=== PATIENT | male | born 1975 | race Caucasian/White ===

== ENCOUNTER → 2017-08-14 16:01 | Outpatient (CLI) | payer OTHER, SELFPAY ==
--- NOTE | 2017-08-14 16:10 | RAD_ITS ---
STUDY: X-RAY CHEST REASON FOR EXAM: Male, 42 years old. Persistent cough TECHNIQUE: PA and lateral views of the chest. COMPARISON: None. FINDINGS: Mild hyperinflation. The lungs are clear. There is no demonstrated pleural abnormality. Normal size heart. Normal mediastinum and eduar. Normal visualized pulmonary arteries. Normal visualized aortic arch and descending thoracic aorta. Normal visualized thoracic spine. Normal visualized ribs, clavicles, and shoulders. There is no demonstrated abnormality of the visualized soft tissue structures of the upper abdomen. RAD/Chest PA and Lateral IMPRESSION: Mild hyperinflation. No pulmonary edema, congestive heart failure or confluent pneumonia. Electronically Signed: Debbie Salazar MD at 7:40 EDT , Service support ,
[2017-08-14 17:36] LABS: Absolute Lymphocyte Count 2.08 X10^3/ul (0.83-4.51); Absolute Neutrophil Count 3.2 X10^3/uL (2.0-7.7); Basophil# 0.03 X10^3/uL; Basophil% 0.5 % (0-1); Eosinophil# 0.25 X10^3/uL; Eosinophils% 4.3 % (0-5); Hematocrit 42.8 % (40-54); Hemoglobin 14.3 g/dl (13.0-16.5); Lymphocyte # 2.08 X10^3/ul (4.0); Lymphocyte % 35.6 % (19-41); Mean Corp Hgb Conc 33.4 g/gl (32-36); Mean Corpuscular Hgb 30.9 pg (27.0-32.0); Mean Corpuscular Volume 92.4 fL (80-94); Monocyte# 0.32 X10^3/uL; Monocyte% 5.5 % (0-10); Neutrophil # 3.16 X10^3/uL (2.7-7.7); Neutrophil % 53.9 % (47-70); Platelet Count 221 K/mm3 (150-450); RBC Distribution Width CV 12.8 % (11.6-14.6); RBC Distribution Width SD 42.9 fl (35.1-43.9); Red Blood Count 4.63 M/mm3 (4.6-6.2); White Blood Count 5.9 K/mm3 (4.4-11.0)
[2017-08-14 17:38] LABS: POSITIVE COUNT NO; POSITIVE DIFFERENTIAL NO; POSITIVE MORPHOLOGY NO
[2017-08-14 17:52] LABS: Anion Gap 8 (5-15); BUN 14 mg/dL (7-18); BUN/Creat Ratio 15.4 RATIO (10-20); Chloride 106 mmol/L (98-107); Creatinine, Serum 0.91 mg/dL (0.70-1.30); EST Glomerular Filtration Rate 98 mL/min (>60); Est Glom Filt Rate - Afr Amer 118 mL/min (>60); Glucose 90 mg/dL (74-106); Potassium 4.5 mmol/L (3.5-5.1); Sodium Level 141 mmol/L (136-145)
== END ==
LOC: MTLAB 16:03
PROVIDERS: Family Provider Family Medicine; PCP Family Medicine; Visit Provider Family Medicine
DX: R05 Cough (principal)
CPT/HCPCS: 36415; 71046; 80048; 85025

== ENCOUNTER → 2017-08-26 15:16 | Outpatient (CLI) | payer OTHER, SELFPAY ==
[2017-08-30 03:07] LABS: Alternaria alternata <0.10 kU/L (Class 0); Aspergillus fumigatus <0.10 kU/L (Class 0); Bahia Grass 0.93 kU/L (Class II); Bermuda Grass 0.76 kU/L (Class II); Bluegrass, Kentucky 1.69 kU/L (Class III); Cat Hair/Dander, Standard <0.10 kU/L (Class 0); Cedar, Mountain <0.10 kU/L (Class 0); Cladosporium herbarum <0.10 kU/L (Class 0); Cockroach, American <0.10 kU/L (Class 0); D pteronyssinus 0.11 kU/L (Class 0/I); Dog Epithelia <0.10 kU/L (Class 0); Elm, American White <0.10 kU/L (Class 0); Hazelnut Tree <0.10 kU/L (Class 0); Hickory, White <0.10 kU/L (Class 0); Johnson Grass 0.92 kU/L (Class II); Mucor racemosus <0.10 kU/L (Class 0); Mugwort <0.10 kU/L (Class 0); Mulberry, White <0.10 kU/L (Class 0); Oak, White <0.10 kU/L (Class 0); Penicillium chrysogen <0.10 kU/L (Class 0); Pigweed, Rough <0.10 kU/L (Class 0); Plantain, English <0.10 kU/L (Class 0); Ragweed, Short/Common <0.10 kU/L (Class 0); Sheep Sorrel(Dock) <0.10 kU/L (Class 0); Stemphylium herbarum <0.10 kU/L (Class 0); Sweet Gum <0.10 kU/L (Class 0); Sycamore, American <0.10 kU/L (Class 0)
[2017-08-30 14:20] LABS: Nettle <0.10 kU/L (Class 0)
== END ==
PROVIDERS: Family Provider Family Medicine; PCP Family Medicine; Visit Provider Family Medicine
DX: Z91.09 Other allergy status, other than to drugs and biological substances (principal)
CPT/HCPCS: 36415; 86003

== ENCOUNTER → 2017-11-25 15:12 | Outpatient (CLI) | payer OTHER, SELFPAY ==
--- NOTE | 2017-11-25 15:15 | RAD_ITS ---
STUDY: X-RAY - RIGHT FOOT CLINICAL: Male, 42 years old. Pain TECHNIQUE: 3 view(s) of the foot. COMPARISON: None. FINDINGS: Normal talus, calcaneus, and tarsal bones. Normal visualized subtalar, talonavicular, calcaneocuboid, tarsal and tarsometatarsal articulations. Normal metatarsi. Normal metatarsophalangeal joint of the great toe. Normal tibial and fibular sesamoid bones. Normal interphalangeal joint of the great toe. Normal phalanges of the great toe. Normal second through fifth metatarsophalangeal joints. Normal interphalangeal joints and phalanges of the lesser toes. The soft tissue structures are unremarkable. RAD/Foot min 3 Views IMPRESSION: Normal x-ray examination of the foot. No fracture. No osteoarthritis Electronically Signed: Aaron Chua MD at 4:14 EDT Tel , Service support ,
== END ==
LOC: MTRAD 15:14
PROVIDERS: Family Provider Family Medicine; PCP Family Medicine; Referring Provider Family Medicine; Visit Provider Family Medicine
DX: M79.673 Pain in unspecified foot (principal)
CPT/HCPCS: 73630

== ENCOUNTER → 2019-01-21 07:05 | Outpatient (CLI) | payer OTHER, SELFPAY ==
[2019-01-21 07:23] LABS: Anion Gap 6 (5-15); BUN 10 mg/dL (7-18); Calcium,Total 8.8 mg/dL (8.5-10.1); Chloride 107 mmol/L (98-107); Cholesterol 194 mg/dL (200); Creatinine, Serum 0.91 mg/dL (0.70-1.30); EST Glomerular Filtration Rate 97 mL/min (>60); Est Glom Filt Rate - Afr Amer 118 mL/min (>60); Glucose 86 mg/dL (74-106); High Density Lipoprotein 36 mg/dL; Potassium 4.4 mmol/L (3.5-5.1); Sodium Level 139 mmol/L (136-145); Triglycerides 167 mg/dL; Very Low Density Lipoprotein 33 mg/dL (5-40)
[2019-01-21 09:49] LABS: Vitamin D,25 Hydroxy 23.8 ng/mL (29.95-100.01)
== END ==
PROVIDERS: Family Provider Family Medicine; PCP Family Medicine; Referring Provider Family Medicine; Visit Provider Family Medicine
DX: Z00.00 Encounter for general adult medical examination without abnormal findings (principal)
CPT/HCPCS: 80048; 80061; 82306

== ENCOUNTER 2019-03-30 06:05 | Emergency (ER) | payer OTHER, SELFPAY ==
[2019-03-30 06:06] VITALS: BP 153/98; PULSE 81; RESP 16; TEMP 36.6; O2SAT 98; BMI 32.8
--- NOTE | 2019-03-30 06:45 | ED.DCSUM_ITS ---
- ER Visit Summary Date of Service: 03/30/19 Chief Complaint: Back pain History of Present Illness: The patient is a 43 M who presents with back pain that is been getting worse over the past 3 days. Patient denies any injury. Patient states the pain is gradually gotten worse. Patient describes the pain i s sharp. Patient states pain is over the left lower lumbar area. Patient states he does have some radiation down his left leg. Patient denies any bowel or bladder changes. Patient denies any saddle anesthesia. Patient states nothing makes the pain better or worse. Physical Examination: Vital signs are stable. Patient is afebrile. Patient is in no acute distress. Musculoskeletal exam reveals tenderness over the left lumbar paraspinal muscles and sciatic notch. There is no midline tenderness. There is no bony crepitance or step-off. Range of motion was limited in all motion secondary to pain. Straight leg raises were negative bilaterally. Strength is 5/5 bilaterally in the lower extremities. There are no sensory deficits noted. Deep tendon reflexes are 2/4 bilaterally. Posterior tibial pulses are equal bilaterally. Emergency Department Course and Treatment: Patient was given an injection of Toradol here. Patient was given prescriptions for Naprosyn and Flexeril. Patient was instructed to follow-up with his primary care physician in 5 to 7 days. Patient was instructed to continue using ice to the area. Patient understands and was agreeable with the plan. All questions were answered. Disposition: Discharge home Impression: Acute low back pain with sciatica This note was generated with [employer] dictation software. It may contain incorrect words, spelling, and punctuation that were not noted in review of the chart prior to signing ED Disposition - Plan for ED Patient: Disposition: Home or Assisted Living Diagnosis: Acute low back pain with sciatica Instructions: BACK PAIN w/ SCIATICA Prescriptions: cycloBENZAPRine HCl [Flexeril] 10 mg PO QHS PRN PRN #20 tab PRN Reason: Muscle Spasm Prescription Printed Naproxen [Naprosyn] 500 mg PO BID PRN #20 tab Prescription Printed Referrals: Noah Julian MD [Primary Care Provider] - 5-7 Days
[2019-03-30] MEDS: Ketorolac 60 MG/2 ML Vial IM (06:55)
[2019-03-30 07:07] VITALS: RESP 16
== END 2019-03-30 07:07 | disposition home or self-care (01) ==
PROVIDERS: Emergency Provider Emergency Medicine; PCP Family Medicine
DX: M54.40 Lumbago with sciatica, unspecified side (principal); F17.210 Nicotine dependence, cigarettes, uncomplicated
CPT/HCPCS: 96372; 99282

== ENCOUNTER → 2019-04-09 16:38 | Outpatient (CLI) | payer OTHER, SELFPAY ==
[2019-03-30 06:06] VITALS: BMI 32.8
--- NOTE | 2019-04-09 16:42 | RAD_ITS ---
STUDY: X-RAY - LUMBAR SPINE REASON FOR EXAM: Male, 43 years old. BACK PAIN, NO KNOWN INJURY, PT WOKE UP THAT WAY TECHNIQUE: 5 view(s) of the lumbar spine were obtained. COMPARISON: None FINDINGS: Normal lumbar lordosis. There is no substantial scoliosis. There is a normal alignment of the vertebrae. Normal vertebral bodies and endplates. Normal disc space heights. The soft tissue structures are unremarkable. There are expected degenerative changes. RAD/L/S Spine Min 4 Views IMPRESSION: Unremarkable age-appropriate lumbar spine. Electronically Signed: Ericka Farmer, at 18:09 EST Tel , Service support ,
== END ==
LOC: MTRAD 16:40
PROVIDERS: PCP Family Medicine; Referring Provider Family Medicine; Visit Provider Family Medicine
DX: M54.9 Dorsalgia, unspecified (principal)
CPT/HCPCS: 72110

== ENCOUNTER → 2020-01-25 08:39 | Outpatient (CLI) | payer OTHER, SELFPAY ==
[2020-01-25 09:11] LABS: Anion Gap 4 (5-15); BUN 11 mg/dL (7-18); BUN/Creat Ratio 11.2 RATIO (10-20); Chloride 107 mmol/L (98-107); Cholesterol 191 mg/dL (200); Creatinine, Serum 0.98 mg/dL (0.70-1.30); EST Glomerular Filtration Rate 88 mL/min (>60); Est Glom Filt Rate - Afr Amer 107 mL/min (>60); Glucose 84 mg/dL (74-106); High Density Lipoprotein 41 mg/dL; Potassium 4.8 mmol/L (3.5-5.1); Sodium Level 139 mmol/L (136-145); Triglycerides 159 mg/dL; Very Low Density Lipoprotein 32 mg/dL (5-40)
== END ==
PROVIDERS: PCP Family Medicine; Referring Provider Family Medicine; Visit Provider Family Medicine
DX: Z00.00 Encounter for general adult medical examination without abnormal findings (principal); E55.9 Vitamin D deficiency, unspecified
CPT/HCPCS: 80048; 80061; 82306

== ENCOUNTER → 2020-06-17 12:27 | Outpatient (CLI) | payer OTHER, SELFPAY ==
--- NOTE | 2020-06-17 12:37 | RAD_ITS ---
STUDY: X-RAY - RIGHT RADIUS AND ULNA REASON FOR EXAM: Male, 45 years old. Forearm pain. TECHNIQUE: 2 view(s) of the forearm. COMPARISON: None. FINDINGS: There is no demonstrated soft tissue swelling. Normal visualized radius. Normal visualized ulna. RAD/Forearm 2 Views IMPRESSION: No abnormality of the right forearm. Electronically Signed: Kenan Grant MD at 13:13 EDT , Service support ,
== END ==
LOC: MTRAD 12:28
PROVIDERS: PCP Family Medicine; Referring Provider Family Medicine; Visit Provider Family Medicine
DX: M79.639 Pain in unspecified forearm (principal)
CPT/HCPCS: 73090

== ENCOUNTER 2020-06-19 13:16 | Emergency (ER) | payer OTHER, SELFPAY ==
[2020-06-19 13:16] VITALS: BP 162/97; PULSE 98; RESP 14; TEMP 37.1; O2SAT 96; BMI 32.8
--- NOTE | 2020-06-19 13:30 | RAD_ITS ---
STUDY: X-RAY - RIGHT HAND REASON FOR EXAM: Male, 45 years old. Injury/Pain TECHNIQUE: 3 view(s) of the hand. COMPARISON: None. FINDINGS: 3 views of the right hand demonstrate no evidence for acute fractures or dislocation. Metacarpal bones are intact. Metacarpal phalangeal joints are intact. The interphalangeal joints are intact. Small punctate hyperdensity in the region of the distal phalanx of the fourth digit noted likely a soft tissue foreign body along the volar aspect IMPRESSION: No evidence for acute fractures. Small punctate hyperdensity along the floor soft tissues of the fourth digit distal phalanx likely a foreign body Electronically Signed: Reid Cohen MD at 14:02 EDT Tel , Service support , RAD/Hand Min 3 Views
--- NOTE | 2020-06-19 13:31 | EX.ED.UPPERE ---
HPI History of Present Illness Chief Complaint: Upper Extremity Injury Informant: patient Occured/Mechanism Mechanism/Context: Yes other Onset/Context/Timing Onset: Weeks (1) Context: Gradual Onset Timing: Continuous Quality of Pain: Dull Worsened by: Nothing Relieved by: Nothing Associated Symptoms Associated Symptoms: Positive for Weakness and Loss of Funtion; Negative for Parasthesia Narrative Narrative: Patient presents with right hand weakness that has gradually gotten worse over the last week. Patient states that today he is unable to move his right hand. Patient states he has seen his primary care physician for this. Patient states he had forearm x-rays done this week which were negative. Patient states he has been placed on a steroid. Patient states this has not helped. Patient denies any paresthesias. Patient denies any trauma or injury. PFSH PFSH no medical history Home Medications NK 06/19/20 [History Last Taken Unknown] Allergy/AdvReac Type Severity Reaction Status Date / Time No Known Allergies Allergy Verified 06/19/20 13:19 no surgical history Social History Smoking Status: Current every day smoker ROS ROS ED Constitutional Constitutional ED: Denies chills or sweats Eyes Eyes: Denies blurry vision or change in vision ENT ENT ED: Denies rhinorrhea or sore throat Cardiovascular Cardiovascular: Denies chest pain or palpitations Respiratory/Chest Respiratory/Chest: Denies cough or dyspnea Gastrointestinal Gastrointestinal: Denies nausea or vomiting Genitourinary Genitourinary ED: Denies dysuria or hematuria Musculoskeletal Musculoskeletal: Denies back pain or neck pain Integumentary Denies abscess or rash Neurologic Neurologic: Denies headache(s) or paresthesias Allergic/Immunologic Allergic/Immunologic ED: Denies mouth swelling or urticaria EXAM Physical Exam Const Vital Signs: 06/19/20 13:16 Temperature 98.8 F Temperature Source Temporal Pulse Rate 98 Respiratory Rate 14 Blood Pressure 162/97 H Blood Pressure Mean 118 Pulse Ox 96 Oxygen Delivery Method Room Air Positive well nourished and well developed General Appearance ED: well developed HEENT normocephalic and atraumatic Extremity Right Upper Extremity: hand and digits inspection, palpation, ROM (There is decreased range of motion in all digits.), neurovascular exam (Radial pulses are equal bilaterally. Capillary refill is less than 2 seconds in all digits. Sensation was intact to light touch in all digits.) and hand special tests (Tinel's sign was negative. Phalen's test was negative.) Neuro oriented x3, CN's II-XII intact bilaterally and no sensory deficits noted Neuro Narrative: Strength is 5/5 in the right shoulder, bicep, tricep, wrist extension, and wrist flexion. Strength is 3/5 with mold yarn supervisor. Sensorium / Orientation: alert Motor Exam: strength abnormal MDM MDM MDM Narrative Medical decision making narrative: CBC and comprehensive metabolic profile were obtained and are essentially within normal limits. Sed rate and CRP were normal. X-rays of the right hand were obtained. There are 3 views. On my interpretation, there is no acute fracture. There is no soft tissue swelling. There is no dislocation. Radiologist also interpreted the x-ray and agrees. Patient was advised of his findings. Patient was instructed to continue his steroid as prescribed until gone. Patient was instructed to continue wearing his splint. Patient was instructed to follow-up with his orthopedic appointment tomorrow as scheduled. Patient was also advised that this is may be a neuropraxia and he may require EMG and nerve conduction studies as an outpatient. Patient understands and is agreeable with the plan. All questions were answered. Lab Data Attestation: I reviewed the patient's lab results. Discharge Plan Triage Chief Complaint: Upper Extremity Injury ED Provider: Jaylen Han Dx/Rx/DC Orders Clinical Impression: Weakness of right hand Instructions: ED Weakness (Uncertain Cause) Prescriptions: No Action NK RF: 0 Primary Care Provider: Noah Julian Referrals: Ulysses Rausch DO [STAFF PHYSICIAN] - Keep Andre appointment Noah Julian MD [Primary Care Provider] - 3-5 Days Disposition Disposition: Home, self care
[2020-06-19 13:49] LABS: Absolute Lymphocyte Count 3.72 X10^3/uL (0.83-4.51); Absolute Neutrophil Count 4.7 X10^3/uL (2.0-7.7); Basophil# 0.03 X10^3/uL; Basophil% 0.3 % (0-1); Eosinophil# 0.19 X10^3/uL; Eosinophils% 2.1 % (0-5); Hematocrit 42.9 % (40-54); Hemoglobin 14.5 g/dL (13.0-16.5); Lymphocyte # 3.72 X10^3/ul (0.83-4.51); Lymphocyte % 40.5 % (19-41); Mean Corp Hgb Conc 33.8 g/dL (32-36); Mean Corpuscular Hgb 31.6 pg (27.0-32.0); Mean Corpuscular Volume 93.5 fL (80-94); Mean Platelet Vol. 10.1 fl (6.2-12.0); Monocyte# 0.53 X10^3/uL; Monocyte% 5.8 % (0-10); NRBC Flagged by Analyzer 0 % (0-5); Neutrophil # 4.69 X10^3/uL (2.7-7.7); Platelet Count 248 K/mm3 (150-450); RBC Distribution Width CV 12.5 % (11.6-14.6); RBC Distribution Width SD 43.1 fl (35.1-43.9); Red Blood Count 4.59 M/mm3 (4.6-6.2); White Blood Count 9.2 K/mm3 (4.4-11.0)
[2020-06-19 13:55] LABS: Erythrocyte Sedimentation Rate 7 mm/hr (0-20)
[2020-06-19 14:14] LABS: ALB/GLOB Ratio 1.5 RATIO (0.9-2.4); AST(SGOT) 13 U/L (15-37); Alanine Aminotransfer ALT/SGPT 28 U/L (16-61); Albumin, Serum 4.1 g/dL (3.2-5.0); Alkaline Phosphatase 62 U/L (45-117); Anion Gap 4 (5-15); BUN 17 mg/dL (7-18); BUN/Creat Ratio 21.4 RATIO (10-20); CRP < 2.90 mg/L (0.0-3.0); Calcium,Total 8.7 mg/dL (8.5-10.1); Chloride 110 mmol/L (98-107); EST Glomerular Filtration Rate 112 mL/min (>60); Est Glom Filt Rate - Afr Amer 136 mL/min (>60); Estimated Creatinine Clearance 110.17 ml/min; Globulin 2.8 g/dL (2.2-4.2); Glucose 104 mg/dL (74-106); Protein, Total 6.9 g/dL (6.4-8.2); Sodium Level 141 mmol/L (136-145)
== END 2020-06-19 15:03 | disposition home or self-care (01) ==
PROVIDERS: Emergency Provider Emergency Medicine; PCP Family Medicine
DX: R53.1 Weakness (principal); F17.200 Nicotine dependence, unspecified, uncomplicated
CPT/HCPCS: 73130; 80053; 85025; 85652; 86140; 99282; A4216

== ENCOUNTER → 2020-06-21 13:09 | Outpatient (CLI) | payer OTHER, SELFPAY ==
[2020-06-20 10:14] VITALS: BMI 32.8
--- NOTE | 2020-06-21 13:11 | MRI_ITS ---
STUDY: MRI CERVICAL SPINE WITHOUT CONTRAST REASON FOR EXAM: Male, 45 years old. pain TECHNIQUE: Standardized fat and water weighted pulse sequences were obtained in the sagittal and axial planes. COMPARISON: X-ray 06/20/2020 FINDINGS: Normal foramen magnum and brainstem-cervical cord junction. Normal craniovertebral junction. Normal anterior atlantoaxial articulation. Normal odontoid process. There is straightening of the normal cervical lordosis. Normal vertebral bodies and posterior osseous elements. C2-3: Normal endplates. Normal disc height, signal and morphology. Normal central canal and intervertebral neural foramina. C3-4: Normal endplates. Normal disc height, signal and morphology. Normal central canal and intervertebral neural foramina. C4-5: Normal endplates. Normal disc height, signal and morphology. Normal central canal and intervertebral neural foramina. C5-6: Moderate sized central disc protrusion produces moderate spinal stenosis with near abutment of the central spinal cord. No neural foraminal stenosis. C6-7: Mild broad disc osteophyte complex with Modic type II endplate changes produces mild spinal stenosis, mild right neural foraminal stenosis and moderate left neural foraminal stenosis. C7-T1: Normal endplates. Normal disc height, signal and morphology. Normal central canal and intervertebral neural foramina. Normal cervical cord. Normal visualized soft tissue structures. MRI/Spine Cervical (Routine) IMPRESSION: Multilevel degenerative changes, as described above. Electronically Signed: Jake Almeida MD at 15:36 EDT Tel , Service support ,
== END ==
LOC: MRI 13:11
PROVIDERS: PCP Family Medicine; Visit Provider Orthopaedic Surgery
DX: M54.12 Radiculopathy, cervical region (principal)
CPT/HCPCS: 72141

== ENCOUNTER → 2020-06-24 13:03 | Outpatient (CLI) | payer OTHER, SELFPAY ==
[2020-06-23 11:11] VITALS: BMI 32.8
[2020-06-24 13:47] LABS: Erythrocyte Sedimentation Rate 15 mm/hr (0-20)
[2020-06-24 14:23] LABS: Thyroid Stim Hormone (TSH) 1.26 uIU/mL (0.358-3.74)
== END ==
PROVIDERS: PCP Family Medicine; Referring Provider Psychiatry & Neurology Neurology; Visit Provider Psychiatry & Neurology Neurology
DX: G56.91 Unspecified mononeuropathy of right upper limb (principal)
CPT/HCPCS: 36415; 84443; 85652

== ENCOUNTER → 2020-08-31 14:18 | Outpatient (CLI) | payer OTHER, SELFPAY ==
[2020-06-23 11:11] VITALS: BMI 32.8
--- NOTE | 2020-08-31 15:15 | NEURO ---
NCS and/or EMG Patient Report Ordering Doctor: David Malin DATE OF SERVICE: 08/31/20 Kenan presents for Electrodiagnostic testing of the right upper limb. Reports weakness and stiffness in the right hand for 3 months with intermittent numbness and tingling. Electrodiagnostic findings: Right median motor nerve demonstrates normal distal latency and amplitude with borderline reduced conduction velocity. Normal right ulnar motor response, including conduction across the elbow. Sensory responses are within normal limits. Median and ulnar F waves are normal. On needle EMG, all muscles tested in the right upper limb, as well as the right cervical paraspinals, showed no evidence of denervation with normal motor unit action potentials. Electrodiagnostic impression: This is a normal electrodiagnostic study in the right upper limb. There is no electrodiagnostic evidence for peripheral neuropathy or cervical radiculopathy.
== END ==
LOC: PSN 14:19
PROVIDERS: PCP Family Medicine; Referring Provider Psychiatry & Neurology Neurology; Visit Provider Psychiatry & Neurology Neurology
DX: R29.898 Other symptoms and signs involving the musculoskeletal system (principal); G62.9 Polyneuropathy, unspecified
CPT/HCPCS: 95886; 95910

== ENCOUNTER 2020-09-21 16:00 | Outpatient (RCR) | payer OTHER, SELFPAY ==
[2020-06-23 11:11] VITALS: BMI 32.8
--- NOTE | 2020-07-15 08:14 | HP.OTEVAL ---
Patient's Visit Information JAZZY SKINNER is a 45 year old M, referred to Occupational Therapy by Dr. David Malin MD, with a diagnosis of Polyneuropathy right UE. Date of Evaluation: 07/14/20 Occupational Therapist: Amelia De La Cruz, TOSHIA/Carlie, CHT - Subjective This 45 year old male was seen for OT eval. 5-6 weeks ago pt states he woke up and could not move his hand. pt states he went to Dr. and was placed on prednisone- went to ER. had testing done- Per pt they are unsure what is going on. pt to have nerve conduction testing done August 31, 2020. pt states he does feel a tingling/numbness in all fingers- and noticed more difficulty with the ability to use his right dominant hand. pt would like to know what he can do to get his hand back. pt states weakness is bothersome and limits his ability to pinch, right,type or grasp objects. 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 - ADLs Fasteners: Tie shoes, Buttons, Belt Eating: Use silverware, Cut food, Drink from glass Grooming: Trim nails, [place] teeth Kitchen: Chop with knife Miscellaneous: Use cell phone, Handle money (change), Hold change, Take things out of wallet, Use hand tools, Use power tools - Pain right arm forearm 2 Pain Intensity Range: 0, 3 - ROM Shoulder: right/left WNL Elbow: right/left WNL Forearm: right/left WNL Wrist: right 70/45 left 70/65 Opposition: right 0 left 10 ROM Comments: pt demo with no IP flex of right thumb with attempts at opposition- pt can perform slight IP flex ind. pt initiates composite fist with fingers flat fist and no DIP flex- pt can perform hook fist and then roll fingers down into composite fist but more difficult and challenging. - Strength Shoulder: right 4+/5 left 4/5 Elbow: right 4+/5 left 4+/5 Forearm: right 4+/5 left 4+/5 Wrist: right 4+/5 left 4+/5 Environmental Planning Engineer: right 25# left 90 Lateral Pinch: right unable left 10# Tripod Pinch: right unable left 14# Tip-to-Tip Pinch: right unable left 10# Strength Comments: pt demo with significant weakness of left business process analyst and pinch strength - Sensation Thumb: right 2.83 left 2.83 Index: right 2.83 left 2.83 Middle: right 2.83 left 2.83 Ring: right 2.83 left 2.83 Little: right 2.83 left 2.83 - In-Hand Manipulation Finger to Palm Translation: Moderate - Right, Severe - Right, Unable - Right, Normal - Left Palm to Finger Translation: Unable - Right, Normal - Left Shift: Unable - Right, Normal - Left Rotation: Unable - Right, Normal - Left - Quick DASH-Disab of Arm,Shoulder& Hand Quick DASH Score: 66.0700 - Goals Goal:: pt will demo a increase in right business process analyst strength to 75# or greater to return pt to plof by d/c. pt will demo the ability to pinch 6# with lateral and tripod pinch to increase pts ind. with ADLs and IADLs by D/c Goal:: pt will demonstrate the ability to perform right digit opposition to base of LF indicating increase in FMS to perform ADls and IADLs at IND. level by d/c Goal:: pt will demo the ability to write name legible with ad. devices at VIKAS level by d/c. pt will report less typing errors when at work. - Rehabilitation General Assessment: pt demo with significant weakness in right business process analyst and pinch strength limiting pts ind. with ADLS and IADLs. pt would benefit from skilled OT service 2x week for 6 weeks to increase pts strength to return to PLOF as well as challenge pts FMS to increase pts ind. with type,write and other occupations of daily living. Today therapy initiated nerve glides and will transition pt to PRE as he is able. pt demo. understanding and agree to POC. Rehabilitation Potential: Good - Anticipated Interventions Early Active Motion, Strengthening, Modalities, Fine Motor Coord/Jamaal, Neuro Reeducation, Education re assistive Equipment - Visit Plan Frequency: 1-2x /Week Duration: 4 Weeks TEXT: Thank you for the opportunity to evaluate your patient. For Medicare and Medicare HMO plans, please review the plan of care and approve it. It will need to be FAXED BACK to us at [phone] for Medicare purposes. Please let me know if there are questions or concerns regarding this plan of care. Physician Signature: Date:
--- NOTE | 2020-09-26 18:16 | HP.OTDCSUM ---
It has been my pleasure to treat JAZZY SKINNER under orders from Dr. David Malin MD, for the diagnosis of Polyneuropathy right UE for a total of 8 visit(s). Please see the following information for a summary of their discharge status. % Improvement: 0 Objective/Function: right traffic control technician strength 35#. right lateral pinch 4# decrease from 10#. right tripod pinch unable. tip pinch right unable. pts pinch strength and significantly decreased from initial- pt would benefit from further testing Patient Goals: Regain Mobility, Improve Fine Motor Skills, Use Hand/Wrist/Arm Normally Again, Be More Independent in ADLS Goal:: pt will demo a increase in right traffic control technician strength to 75# or greater to return pt to plof by d/c. pt will demo the ability to pinch 6# with lateral and tripod pinch to increase pts ind. with ADLs and IADLs by D/c Goal:: pt will demonstrate the ability to perform right digit opposition to base of LF indicating increase in FMS to perform ADls and IADLs at IND. level by d/c Goal:: pt will demo the ability to write name legible with ad. devices at VIKAS level by d/c. pt will report less typing errors when at work. Plan: return to family due to increase weakness and per pt NCS in normal Discharge Comments: pt would benefit from further testing as his strength has continued to decrease in right traffic control technician/pinch. Therapist rec'd pt to go to family and pursue further testing or imagine of brain as nerve conduction test was normal. possible lynnette involvement. pt d/c at this time. If there are questions or concerns regarding this patient's occupational therapy, please fell free to call me at [phone]. Thank you for the referral of this patient. Sincerely, Amelia De La Cruz, OTR/L, CHT
== END 2020-09-21 19:00 | disposition home or self-care (01) ==
LOC: OT 16:00
PROVIDERS: PCP Family Medicine; Referring Provider Psychiatry & Neurology Neurology; Visit Provider Psychiatry & Neurology Neurology
DX: G62.9 Polyneuropathy, unspecified (principal); R29.898 Other symptoms and signs involving the musculoskeletal system
CPT/HCPCS: 97110; 97140; 97166; 97530

== ENCOUNTER 2020-09-25 16:34 | Emergency (ER) | payer OTHER, SELFPAY ==
[2020-06-23 11:11] VITALS: BMI 32.8
[2020-09-25] VITALS (8 sets, daily range): BP systolic 161–178; BP diastolic 85–104; PULSE 81–89; RESP 14–24; TEMP 37–37.2; O2SAT 95–97; BMI 32.4
--- NOTE | 2020-09-25 16:37 | NURSING ---
NO OLD EKGS
--- NOTE | 2020-09-25 16:38 | CT_ITS ---
STUDY: CTA HEAD AND NECK WITH CONTRAST REASON FOR EXAM: Male, 45 years old. Neuro deficit, acute, stroke suspected RADIATION DOSAGE (If Supplied By Facility): CTDIvol = ( 19.35 ) mGy, DLP = ( 615.19 ) mGycm TECHNIQUE: CT angiography was performed with a multi-detector CT scanner. Data acquisition was obtained from the skull base through the vertex following intravenous administration of IV 100mL Isovue-370. MIP images were reconstructed from the axial data set. Post-processing of the angiographic images was performed, with multiplanar reformation and 3D reconstruction. Individualized dose optimization techniques were used for this CT. COMPARISON: No relevant priors. FINDINGS: Normal bilateral petrous carotid arteries. There is calcified plaque formation of the right cavernous carotid artery, without a cross-sectional luminal stenosis. There is calcified plaque formation of the left cavernous carotid artery, without a cross-sectional luminal stenosis. Normal right A1 segments of the anterior cerebral artery. Normal left A1 segments of the anterior cerebral artery. Normal intact anterior communicating artery (ACOM). Normal bilateral A2 segments of the anterior cerebral arteries. Normal right M1 and M2 segments of the middle cerebral arteries, with a normal M1 bifurcation. There is retrograde filling of the left middle cerebral artery from the right side. There is decreased vascular branches of the distal left middle cerebral artery in the region of the sylvian fissure. Normal right posterior communicating artery (PCOM). Normal left posterior communicating artery (PCOM). Normal bilateral vertebral arteries. Normal basilar artery with a normal basilar bifurcation. The visualized bilateral superior cerebellar (SCA) arteries are normal. Normal bilateral P1, P2 and visualized P3 segments of the posterior cerebral arteries. There is no demonstrated aneurysm of the rosebud of [place]. There is no demonstrated abnormality of the visualized brain. AORTIC ARCH: Normal visualized aortic arch. Normal origins of the brachiocephalic, left common carotid, and left subclavian arteries. RIGHT CAROTID ARTERIES: Normal right common carotid artery (CCA). Normal right common carotid bulb. Normal origin of the right internal carotid (ICA) artery without a hemodynamically significant stenosis. Normal visualized cervical portion of the right internal carotid artery. Normal origin of the right external carotid artery (ECA). LEFT CAROTID ARTERIES: Normal left common carotid artery (CCA). Normal left common carotid bulb. There is occlusion of the left internal carotid artery at its origin. Normal visualized cervical portion of the left internal carotid artery. Normal origin of the left external carotid artery (ECA). VERTEBRAL ARTERIES: Normal bilateral vertebral arteries. CT/STROKE CTA Head AND Neck W/Con IMPRESSION: There is occlusion of the left internal carotid artery at its origin with retrograde filling of the intracranial branches of the left internal carotid artery from the right internal carotid artery. N.B. : The above Results were Read Back by Garfield Alvarez MD to Dr Sara MD, and understanding confirmed on 09/26/2020 14:34:28 (ET). Electronically Signed: Garfield Alvarez MD at 14:35 EDT , Service support ,
--- NOTE | 2020-09-25 16:38 | CT_ITS ---
STUDY: CT BRAIN WITHOUT CONTRAST REASON FOR EXAM: Male, 45 years old. Neurologic deficit, stroke evaluation RADIATION DOSAGE (If Supplied By Facility): CTDIvol = ( ) mGy, DLP = ( ) mGycm TECHNIQUE: Transaxial CT imaging of the brain was performed without administration of intravenous contrast material. Individualized dose optimization techniques were used for this CT. COMPARISON: No relevant priors. FINDINGS: There is a wedge-shaped left frontal lobe anterolateral encephalomalacia and adjacent linear subcortical centrum semiovale white matter ill-defined hypodensity. There is no acute intracranial hemorrhage, extra parenchymal fluid collections, hydrocephalus or herniation. Extra parenchymal fluid spaces are diminished. The skull is intact. CT/STROKE Brain/Head without Cont IMPRESSION: 1. Left frontal lobe infarct, probably chronic/versus subacute. 2. Adjacent white matter ischemia, unknown age. 3. In the presence of acute neurologic deficit MRI is recommended. Infarct extension or acute white matter infarct is in the differential diagnosis. N.B. : The above Results were Read Back by Ericka Farmer MD to Sara Lozano MD, and understanding confirmed on 09/25/2020 16:55:18 (ET). Electronically Signed: Ericka Farmer MD at 16:56 EDT Tel , Service support ,
--- NOTE | 2020-09-25 16:38 | EKG12_ITS ---
Test Reason : STROKE Blood Pressure : / mmHG Vent. Rate : 087 BPM Atrial Rate : 087 BPM P-R Int : 160 ms QRS Dur : 076 ms QT Int : 336 ms P-R-T Axes : 056 036 056 degrees QTc Int : 404 ms Normal sinus rhythm Normal ECG Confirmed by XIMENA GLEZ, YARELY ([id number]), editor house organ ISRA[place] PASTOR ([id number]) on 09/28/2020 9:49:14 AM Referred By: CHARISSE Confirmed By:YARELY BUENO MD
--- NOTE | 2020-09-25 16:41 | ED.VIS.STROK ---
HPI History of Present Illness Chief Complaint: Neuro S/Sx Informant: spouse/S.O. Narrative Narrative: Patient is a 45-year-old male with history of migraines and neuropathy/weakness of his right lower extremity for the past few months presenting with sudden onset of right-sided facial droop and inability to speak. History is obtained from his . She states they had lunch around 240 and then shortly afterwards he fell asleep and took a nap. That was around 3:15. Patient then rolled off the couch and seemed confused. This happened around 4 PM. notes that he seemed to have a right-sided facial droop and was not able to speak. He started crying. She called 911 and he was brought to the emergency room. states nothing this never happened before. He has been complained of a headache intermittently all day but that was not abnormal for him as he does have a history of migraines. No other complaints at this time. Patient is unable to provide any further history. PFSH PFSH Home Medications cholecalciferol (vitamin D3) 1,250 mcg (50,000 unit) capsule 1,250 mcg PO QWEEK #4 cap 08/01/20 [Rx Last Taken Unknown] Allergy/AdvReac Type Severity Reaction Status Date / Time No Known Allergies Allergy Verified 08/01/20 15:36 Social History Smoking Status: Current every day smoker tobacco type: cigarettes Electronic Cigarette Use: not used second hand exposure: Yes alcohol intake: never substance use type: does not use ROS ROS ED Review of Systems ROS Unobtainable: other Details: due to aphasia Neurologic Neurologic: Reports headache(s) and weakness EXAM Physical Exam Const Vital Signs: 09/25/20 16:34 09/25/20 16:38 09/25/20 16:41 Temperature 99 F Temperature Source Temporal Pulse Rate 88 89 86 Respiratory Rate 22 H 24 H 18 Blood Pressure 161/104 H 163/88 H 161/104 H Blood Pressure Mean 123 113 123 Pulse Ox 97 96 95 Oxygen Delivery Method Room Air Room Air Room Air 09/25/20 16:53 09/25/20 17:08 Temperature 99 F Temperature Source Temporal Pulse Rate 87 88 Respiratory Rate 16 22 H Blood Pressure 161/104 H 161/85 H Blood Pressure Mean 123 110 Pulse Ox 97 95 Oxygen Delivery Method Room Air Room Air Positive well nourished and well developed General Appearance ED: well developed HEENT Reports dry mucous membranes atraumatic Mouth ED: Yes dry mucous membranes Mouth: dry mucous membranes Eyes PERRL and EOMs intact bilaterally Neck supple and no JVD Chest Wall inspection of chest normal Resp normal respiratory effort and clear to auscultation bilaterally Cardio no murmurs Rate: regular rate Rhythm: regular rhythm GI normal to inspection, nondistended, normoactive bowel sounds Extremity normal to inspection General Extremety ED: Negative for deformity or edema General Extremity: Negative for deformity or edema Neuro No CN's II-XII intact bilaterally Neuro Narrative: See NIH below. Patient has a right facial droop. He is severely dysarthric is not able to make any intelligible sounds. Has a difficult time following commands. Appears to have complete weakness of the right side and loss of sensation. Given his dysarthria and difficulty following commands neurologic exam is difficult. Sensorium / Orientation: alert and confused Speech: Negative for speech normal Sensory Exam: sensory level loss detected Motor Exam: strength abnormal Psych Mood & Affect: tearful Skin no wounds Lesions: no lesions Rashes: no rashes STROKE Vital Signs/Narrative: Vital Signs Temp Pulse Resp BP Pulse Ox 09/25/20 17:08 88 22 H 161/85 H 95 09/25/20 16:53 99 F 87 16 161/104 H 97 09/25/20 16:41 99 F 86 18 161/104 H 95 09/25/20 16:38 89 24 H 163/88 H 96 09/25/20 16:34 88 22 H 161/104 H 97 NIHSS Initial: 1a Level of Consciousness: 0 1b LOC Questions (Score 2 if aphasic/stupor): 2 1c LOC Commands (Only score 1st attempt): 1 2 Best Gaze (If aphasic, use reflexive mvmts.): 0 3 Visual: 0 4 Facial Palsy: 2 5 Motor Arm Right (UN = amputation/fusion): 3 5 Motor Arm Left: 0 6 Motor Leg Right: 3 6 Motor Leg Left: 0 7 Limb ataxia (Only + if out of proportion): 0 8 Sensory (Aphasia/stupor=0 or 1, coma=2): 1 9 Best Language: 3 10 Dysarthria (mute, coma=2, intubated=UN): 2 11 Extinction and Inattention (only scored if +): 0 Total Score: 17 MDM MDM MDM Narrative Medical decision making narrative: Patient evaluated for acute onset of stroke symptoms. Last known well is 415. Patient does appear to have significant neurologic deficits his NIH is 17. CT of the brain shows left frontal lobe infarct probably chronic versus subacute. Patient has been having months of right hand weakness but no other acute neurologic symptoms. Given his young age and significant disability we did discuss the risk benefits of TPA with the patient's and with the patient in the room. The patient is unable to have an input however given his dysarthria and inability to communicate. Will proceed with TPA. Patient does not have any absolute contraindications. Patient is evaluated by stroke neurology and will be transferred via [facility]. Patient's is agreeable this plan of care. Patient remains hemodynamically stable in the emergency room. Lab Data Labs: Laboratory Results - last 24 hr 09/25/20 09/25/20 16:25 16:25 WBC 6.2 RBC 4.96 Hgb 15.5 Hct 45.5 MCV 91.7 MCH 31.3 MCHC 34.1 RDW Std Deviation 41.2 RDW Coeff of Scott 12.3 Plt Count 263 MPV 10.7 Immature Gran % (Auto) 0.200 Neut % (Auto) 43.4 L Lymph % (Auto) 42.8 H Freestone % (Auto) 7.4 Eos % (Auto) 5.4 H Baso % (Auto) 0.8 Absolute Neuts (auto) 2.7 Absolute Lymphs (auto) 2.67 Nucleated RBC % 0 Sodium 139 Potassium 4.0 Chloride 106 Carbon Dioxide 29.0 Anion Gap 4 L BUN 8 Creatinine 0.97 Estim Creat Clear Calc 90.86 Est GFR (MDRD) Af Amer 109 Est GFR (MDRD) Non-Af 90 BUN/Creatinine Ratio 8.3 L Glucose 96 Calcium 9.2 Troponin I High Sens 5.9 Radiography Diagnostic Testing: Radiology Impression Brain CT 09/25/20 16:38 IMPRESSION: 1. Left frontal lobe infarct, probably chronic/versus subacute. 2. Adjacent white matter ischemia, unknown age. 3. In the presence of acute neurologic deficit MRI is recommended. Infarct extension or acute white matter infarct is in the differential diagnosis. N.B. : The above Results were Read Back by Ericka Farmer MD to Sara Lozano MD, and understanding confirmed on 09/25/2020 16:55:18 (ET). Electronically Signed: Ericka Farmer MD at 16:56 EDT Tel , Service support , ADDENDUM: 09/25/20 1703 IMPRESSION: 1. Left frontal lobe infarct, probably chronic/versus subacute. 2. Adjacent white matter ischemia, unknown age. 3. In the presence of acute neurologic deficit MRI is recommended. Infarct extension or acute white matter infarct is in the differential diagnosis. N.B. : The above Results were Read Back by Ericka Farmer MD to Sara Lozano MD, and understanding confirmed on 09/25/2020 16:55:18 (ET). Electronically Signed: Ericka Farmer MD at 16:56 EDT Tel , Service support , Rhythm Strip Rhythm Strip: Sinus Rhythm Rate: 87 Ectopy: None EKG Initial EKG: Attestation: I personally reviewed and interpreted this EKG as follows: Interpretation: Sinus Rhythm Comments: Normal sinus rhythm rate of 87 Normal axis Normal intervals Normal ST segments Stroke Documentation Questions Stroke Team Activated: Yes Reviewed Inclusion/Exclusion criteria: Yes Was Patient considered for Endovascular Intervention?: No IV Alteplase (t-PA) Administered: Yes No contraindications for IV Alteplase (t-PA) administration.: Yes Alteplase (t-PA) risks, benefits, alternative discussed: Yes Not given: Patient refusal: No Critical Care Time Critical Care Time: Yes Critical care time (excluding procedures): 30-74 minutes, Discussing w/Patient &/or Family/Tree Faller, Discussing w/Consultants and Arranging Admission or Transfer Discharge Plan Triage Chief Complaint: Neuro S/Sx ED Provider: Marta Ruiz Dx/Rx/DC Orders Clinical Impression: Acute stroke due to ischemia, Expressive aphasia, Acute right-sided weakness Prescriptions: No Action cholecalciferol (vitamin D3) 1,250 mcg (50,000 unit) capsule 1,250 mcg PO QWEEK Qty: 4 RF: 1 Primary Care Provider: Noah Julian Referrals: Noah Julian MD [Primary Care Provider] - Disposition Disposition: Acute Care Hospital Discharge Location: [facility]
[2020-09-25 16:49] LABS: Absolute Lymphocyte Count 2.67 X10^3/uL (0.83-4.51); Absolute Neutrophil Count 2.7 X10^3/uL (2.0-7.7); Basophil# 0.05 X10^3/uL; Basophil% 0.8 % (0-1); Eosinophil# 0.34 X10^3/uL; Eosinophils% 5.4 % (0-5); Hematocrit 45.5 % (40-54); Hemoglobin 15.5 g/dL (13.0-16.5); Lymphocyte # 2.67 X10^3/ul (0.83-4.51); Lymphocyte % 42.8 % (19-41); Mean Corp Hgb Conc 34.1 g/dL (32-36); Mean Corpuscular Hgb 31.3 pg (27.0-32.0); Mean Corpuscular Volume 91.7 fL (80-94); Mean Platelet Vol. 10.7 fl (6.2-12.0); Monocyte# 0.46 X10^3/uL; Monocyte% 7.4 % (0-10); NRBC Flagged by Analyzer 0 % (0-5); Neutrophil # 2.71 X10^3/uL (2.7-7.7); Neutrophil % 43.4 % (47-70); Platelet Count 263 K/mm3 (150-450); RBC Distribution Width CV 12.3 % (11.6-14.6); RBC Distribution Width SD 41.2 fl (35.1-43.9); Red Blood Count 4.96 M/mm3 (4.6-6.2); White Blood Count 6.2 K/mm3 (4.4-11.0)
--- NOTE | 2020-09-25 16:50 | NURSING ---
FACESHEET FAXED TO [facility]
[2020-09-25 17:10] LABS: Anion Gap 4 (5-15); BUN 8 mg/dL (7-18); BUN/Creat Ratio 8.3 RATIO (10-20); Calcium,Total 9.2 mg/dL (8.5-10.1); Chloride 106 mmol/L (98-107); Creatinine, Serum 0.97 mg/dL (0.70-1.30); EST Glomerular Filtration Rate 90 mL/min (>60); Est Glom Filt Rate - Afr Amer 109 mL/min (>60); Estimated Creatinine Clearance 90.86 ml/min; Glucose 96 mg/dL (74-106); Sodium Level 139 mmol/L (136-145); Troponin-I HS 5.9 pg/mL (3.0-78.5)
--- NOTE | 2020-09-25 17:10 | RAD_ITS ---
STUDY: X-RAY CHEST REASON FOR EXAM: Male, 45 years old. Neuro deficit, acute, stroke suspected TECHNIQUE: Frontal view COMPARISON: 08/14/2014 FINDINGS: The lungs are clear and expanded. There is no demonstrated pleural abnormality. Normal size heart. Normal mediastinum and eduar. Normal visualized pulmonary arteries. Normal visualized aortic arch and descending thoracic aorta. Normal visualized thoracic spine. Normal visualized ribs, clavicles, and shoulders. There is no demonstrated abnormality of the visualized soft tissue structures of the upper abdomen. RAD/Chest 1 View IMPRESSION: Normal x-ray examination of the chest. Electronically Signed: Rajendra Chavira DO at 18:08 EDT Tel [phone], Service support ,
--- NOTE | 2020-09-25 17:20 | NURSING ---
1712 CALLED [facility], ETA IS 10 MIN
--- NOTE | 2020-09-25 17:35 | ED.RN ---
[facility] at bedside
[2020-09-25 18:48] LABS: Prothrombin Time (Protime)PT. 12.6 SECONDS (11.7-14.9)
[2020-09-25 18:49] LABS: Partial Thromboplast Time 39.1 Seconds (24.1-36.2)
== END 2020-09-25 17:44 | disposition short-term general hospital (02) ==
PROVIDERS: Emergency Provider Emergency Medicine; PCP Family Medicine
DX: I63.9 Cerebral infarction, unspecified (principal); R47.01 Aphasia; G81.91 Hemiplegia, unspecified affecting right dominant side; I67.82 Cerebral ischemia; F17.210 Nicotine dependence, cigarettes, uncomplicated; R29.810 Facial weakness
CPT/HCPCS: 70450; 70496; 70498; 71045; 80048; 84484; 85025; 85610; 85730; 87426; 93005; 99285; J2997; Q9967; A4216

== ENCOUNTER 2021-01-13 21:25 | Emergency (ER) | payer SELFPAY ==
[2021-01-13 21:26] VITALS: BP 158/93; PULSE 84; RESP 14; TEMP 37.3; O2SAT 95; BMI 31.6
--- NOTE | 2021-01-13 21:55 | CT_ITS ---
HISTORY: Headache and confusion, swelling at craniotomy site. Stroke September 2020. EXAMINATION: CT Head or Brain W/O Contrast Injection TECHNIQUE: Multiple axial images were obtained of the head without intravenous contrast. A radiation dose optimization technique was used for this scan. IV Contrast dosage and agent: None. COMPARISON: Preoperative head CT from 09/25/20 FINDINGS: In the interval, patient is status post partial left craniectomy. There is bulging and large area of encephalomalacia involving left cerebrum, compatible with remote large left MCA distribution infarct. Bulging results in minimal [id number] midline shift. Otherwise, no significant intracranial mass effect. No intracranial hemorrhage or evidence of acute major territorial infarct. Mild ex vacuo dilatation of left lateral ventricle. No hydrocephalus. Posterior fossa structures are unremarkable. Mild scattered sinus mucosal thickening. Mastoid air cells are well pneumatized. Partially imaged orbits and globes are unremarkable. CT/Brain/Head without Contrast IMPRESSION: Large chronic left MCA distribution infarct status post left partial craniectomy. Bulging of left cerebrum is likely secondary to physical craniectomy defect rather than intracranial mass effect and swelling. Correlate clinically. Recommend follow-up with neurosurgeon for management options and any proposed future cranioplasty. Individualized dose optimization techniques were used for this CT. at 2259 Reported and signed by: Raymundo Majano MD Electronically Signed: Raymundo Majano MD at 22:58 EST Tel , Service support ,
--- NOTE | 2021-01-13 21:58 | RAD_ITS ---
HISTORY: cough EXAMINATION/TECHNIQUE: XR Chest 1 View AP view COMPARISON: AP chest x-ray from 09/25/20 FINDINGS: LINES/DEVICES: None. LUNGS: No focal airspace consolidation. No pulmonary edema. No pleural effusion. No pneumothorax. MEDIASTINUM AND CARDIOVASCULAR STRUCTURES: Cardiac silhouette not enlarged. Central airways and mediastinal contour are unremarkable. BONES AND SOFT TISSUES: No acute findings. RAD/Chest 1 View (Portable) IMPRESSION: No radiographic evidence of acute cardiopulmonary disease. at 2242 Reported and signed by: Raymundo Majano MD Electronically Signed: Raymundo Majano MD at 22:41 EST Tel , Service support ,
[2021-01-13 22:09] LABS: Absolute Lymphocyte Count 2.55 X10^3/uL (0.83-4.51); Absolute Neutrophil Count 2.4 X10^3/uL (2.0-7.7); Basophil# 0.03 X10^3/uL; Basophil% 0.5 % (0-1); Eosinophil# 0.37 X10^3/uL; Eosinophils% 6.5 % (0-5); Hematocrit 43.5 % (40-54); Hemoglobin 14.6 g/dL (13.0-16.5); Lymphocyte # 2.55 X10^3/ul (0.83-4.51); Lymphocyte % 44.5 % (19-41); Mean Corp Hgb Conc 33.6 g/dL (32-36); Mean Corpuscular Hgb 29.2 pg (27.0-32.0); Mean Platelet Vol. 11.1 fl (6.2-12.0); Monocyte# 0.41 X10^3/uL; Monocyte% 7.2 % (0-10); NRBC Flagged by Analyzer 0 % (0-5); Neutrophil # 2.35 X10^3/uL (2.7-7.7); Platelet Count 232 K/mm3 (150-450); RBC Distribution Width CV 12.4 % (11.6-14.6); RBC Distribution Width SD 39.1 fl (35.1-43.9); White Blood Count 5.7 K/mm3 (4.4-11.0)
[2021-01-13 22:18] LABS: Anion Gap 7 (5-15); BUN 14 mg/dL (7-18); BUN/Creat Ratio 14.1 RATIO (10-20); Chloride 108 mmol/L (98-107); EST Glomerular Filtration Rate 87 mL/min (>60); Est Glom Filt Rate - Afr Amer 105 mL/min (>60); Estimated Creatinine Clearance 88.13 ml/min; Glucose 110 mg/dL (74-106); Magnesium 2.1 mg/dL (1.6-2.6); Potassium 3.9 mmol/L (3.5-5.1); Sodium Level 142 mmol/L (136-145)
[2021-01-13 22:55] LABS: Bacteria 0 SEEN /hpf (None Seen); Mucous, Urine 0 SEEN /hpf (<or=2+); Red Blood Cells-Urine 0 SEEN /hpf (0-5); Squamous Epithelial Cells - UA 0 SEEN /hpf (0-5)
[2021-01-13 22:58] LABS: Color, Urine Yellow (Yellow); Glucose, Dipstick Normal (Normal); Ketone-Dipstick 5 mg/dl (Negative); Leukocyte Esterase-Dipstick Negative /ul (Negative); Nitrite-Dipstick Negative (Negative); Occult Blood-Urine Negative /ul (Negative); Protein-Dipstick 15 mg/dl (Negative); Urine Bilirubin Dipstick Negative (Negative); Urine Clarity Clear (Clear); Urine Urobilinogen Normal (Normal)
[2021-01-13 23:08] LABS: White Blood Cells 0-5 SEEN /hpf (0-5)
[2021-01-13 23:26] VITALS: BP 136/74; PULSE 61; RESP 18; O2SAT 96
--- NOTE | 2021-01-13 23:47 | EDS_ITS ---
HPI History of Present Illness Chief Complaint: Confusion Narrative Narrative: Patient is a 45-year-old male who in September 2020 had a massive left MCA stroke. He was sent to [facility] where they had to perform a craniotomy. states that from the stroke he is aphasic and paralyzed on the right side. states that she has noticed the area to his craniotomy has been more swollen over the last 1 to 2 days. Reportedly he has been having increased pain at that site as well. denies any fever but states that with the increased swelling she was concerned for an infectious process and therefore brings him in for evaluation. As the patient is aphasic he cannot provide any further history but is currently at his baseline mental status per . [facility] Medical History Stroke/cerebrovascular accident Home Medications cholecalciferol (vitamin D3) 1,250 mcg (50,000 unit) capsule 1,250 mcg PO QWEEK #4 cap 08/01/20 [Rx Last Taken Unknown] acetaminophen 975 mg PO Q6H PRN 01/13/21 [History Last Taken Unknown] aspirin 81 mg PO DAILY 01/13/21 [History Last Taken Unknown] baclofen 10 mg PO DAILY 01/13/21 [History Last Taken Unknown] donepezil 5 mg PO DAILY 01/13/21 [History Last Taken Unknown] famotidine 20 mg PO DAILY 01/13/21 [History Last Taken Unknown] fluoxetine 20 mg PO DAILY 01/13/21 [History Last Taken Unknown] mirtazapine 15 mg PO DAILY 01/13/21 [History Last Taken Unknown] Allergy/AdvReac Type Severity Reaction Status Date / Time No Known Allergies Allergy Verified 01/13/21 21:31 Surgical History (Updated 01/14/21 @ 00:[address] Riley Escalera DO) History of craniotomy Social History Smoking Status: Former smoker Electronic Cigarette Use: not used second hand exposure: Yes alcohol intake: never substance use type: does not use ROS ROS ED ROS Narrative Please note review of systems was obtained from the as patient is aphasic Constitutional Constitutional ED: Denies fever(s) ENT ENT ED: Denies sore throat Cardiovascular Cardiovascular: Denies chest pain Respiratory/Chest Respiratory/Chest: Denies cough Gastrointestinal Gastrointestinal: Denies abdominal pain, diarrhea, nausea or vomiting Genitourinary Genitourinary ED: Denies dysuria Integumentary Denies rash Neurologic Neurologic: Reports headache(s) Hematologic/Lymphatic Hematologic/Lymphatic: Denies easy bleeding or easy bruising EXAM Physical Exam Const Vital Signs: 01/13/21 21:26 01/13/21 21:35 01/13/21 23:26 Temperature 99.1 F Temperature Source Oral Pulse Rate 84 61 Respiratory Rate 14 18 Respiratory Pattern Normal Blood Pressure 158/93 H 136/74 H Blood Pressure Mean 114 94 Pulse Ox 95 96 Oxygen Delivery Method Room Air Room Air Positive well nourished and well developed General Appearance ED: well developed HEENT Reports moist mucous membranes HEENT Narrative: Patient has a craniotomy along the left scalp consistent with his history. There is soft tissue swelling over the site of the scalp that is fluctuant in nature however there is no overlying erythema or warmth or vesicular lesions to suggest cellulitis abscess or shingles Eyes PERRL and EOMs intact bilaterally Neck supple Chest Wall palpation of chest normal Resp normal respiratory effort and clear to auscultation bilaterally Cardio regular rate and regular rhythm Rate: other Other Details: Radial pulses are +2-4 bilaterally are equal and symmetric GI normal to inspection, nondistended, normoactive bowel sounds, non-tender, non- distended and no masses GI Narrative: No voluntary guarding or rigidity no pulsatile mass Auscultation: normoactive bowel sounds Palpation: soft Extremity Extremity Narrative: Patient has 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 He has chronic neurologic deficits from his previous stroke. No new or acute finding noted. Psych mental status grossly normal Skin Skin Narrative: Soft tissue changes to the scalp as documented above MDM MDM MDM Narrative Medical decision making narrative: Patient presented to the ER afebrile with chronic deficits but no new or acute findings. With the increased swelling and report of headache there was concern for secondary infections I did elect to perform basic laboratory studies. Patient's white count is negative his urine shows no sign of infection and chest x-ray is clear. Head CT reveals a chronic left MCA infarct with craniotomy changes. I did note the swelling that was seen on exam and reports that he believes is related to postsurgical changes versus acute infection. As the patient does not have warmth or redness over the area is afebrile with no white count I do agree with this. Based on the fact his craniotomy is only a few months old I did discuss the case with Dr. Ulrich a neurosurgeon from [facility]. He agrees as his deficits are at his baseline he has no fever or white count and there is no need for further work-up and he can still follow-up on an outpatient basis Lab Data Attestation: I reviewed the patient's lab results. Labs: Laboratory Results - last 24 hr 01/13/21 01/13/21 01/13/21 21:40 21:40 22:50 WBC 5.7 RBC 5.00 Hgb 14.6 Hct 43.5 MCV 87.0 MCH 29.2 MCHC 33.6 RDW Std Deviation 39.1 RDW Coeff of Scott 12.4 Plt Count 232 MPV 11.1 Immature Gran % (Auto) 0.300 Neut % (Auto) 41.0 L Lymph % (Auto) 44.5 H [place] % (Auto) 7.2 Eos % (Auto) 6.5 H Baso % (Auto) 0.5 Absolute Neuts (auto) 2.4 Absolute Lymphs (auto) 2.55 Nucleated RBC % 0 Sodium 142 Potassium 3.9 Chloride 108 H Carbon Dioxide 27.0 Anion Gap 7 BUN 14 Creatinine 1.00 Estim Creat Clear Calc 88.13 Est GFR (MDRD) Af Amer 105 Est GFR (MDRD) Non-Af 87 BUN/Creatinine Ratio 14.1 Glucose 110 H Calcium 9.0 Magnesium 2.1 Urine Color Yellow Urine Clarity Clear Urine pH 5.0 Ur Specific [place] 1.030 Urine Protein 15 H Urine Glucose (UA) Normal Urine Ketones 5 H Urine Occult Blood Negative Urine Nitrite Negative Urine Bilirubin Negative Urine Urobilinogen Normal Ur Leukocyte Esterase Negative Urine RBC 0 SEEN Urine WBC 0-5 SEEN Ur Squamous Epith Cells 0 SEEN Urine Bacteria 0 SEEN Urine Mucus 0 SEEN Radiography Diagnostic Testing: Clinical Impression(s) from Imaging Studies Brain CT 01/13/21 21:55 IMPRESSION: Large chronic left MCA distribution infarct status post left partial craniectomy. Bulging of left cerebrum is likely secondary to physical craniectomy defect rather than intracranial mass effect and swelling. Correlate clinically. Recommend follow-up with neurosurgeon for management options and any proposed future cranioplasty. Individualized dose optimization techniques were used for this CT. at 2259 Reported and signed by: Raymundo Majano MD Electronically Signed: Raymundo Majano MD at 22:58 EST Tel , Service support , Chest X-Ray 01/13/21 21:58 IMPRESSION: No radiographic evidence of acute cardiopulmonary disease. at 2242 Reported and signed by: Raymundo Majano MD Electronically Signed: Raymundo Majano MD at 22:41 EST Tel , Service support , Discharge Plan Triage Chief Complaint: Confusion ED Provider: Riley Escalera Dx/Rx/DC Orders Clinical Impression: Status post craniotomy, Expressive aphasia Instructions: Craniotomy Dc Prescriptions: No Action cholecalciferol (vitamin D3) 1,250 mcg (50,000 unit) capsule 1,250 mcg PO QWEEK Qty: 4 RF: 1 acetaminophen 325 mg Tablet 975 mg PO Q6H PRN (Reason: Pain) RF: 0 donepezil 5 mg tablet 5 mg PO DAILY RF: 0 famotidine 20 mg tablet 20 mg PO DAILY RF: 0 baclofen 10 mg tablet 10 mg PO DAILY RF: 0 fluoxetine 20 mg tablet 20 mg PO DAILY RF: 0 aspirin 81 mg Tablet 81 mg PO DAILY RF: 0 mirtazapine 15 mg tablet 15 mg PO DAILY RF: 0 Primary Care Provider: Noah Julian Referrals: Noah Julian MD [Primary Care Provider] - Disposition Disposition: Home, Self Care
[2021-01-14 00:13] VITALS: BP 142/76; PULSE 70; RESP 17; O2SAT 96
== END 2021-01-14 00:20 | disposition home or self-care (01) ==
PROVIDERS: Emergency Provider Emergency Medicine; PCP Family Medicine
DX: R47.01 Aphasia (principal); Z98.890 Other specified postprocedural states; Z79.82 Long term (current) use of aspirin; Z86.73 Personal history of transient ischemic attack (TIA), and cerebral infarction without residual deficits; Z87.891 Personal history of nicotine dependence
CPT/HCPCS: 70450; 71045; 80048; 81001; 83735; 85025; 99283; A4216

== ENCOUNTER 2021-01-16 13:00 | Outpatient (RCR) | payer OTHER, SELFPAY ==
--- NOTE | 2020-12-19 15:11 | HP.PTEVAL_ITS ---
Patient's Visit Information JAZZY SKINNER is a 45 year old M referred to Physical Therapy by Dr. Noah Julian MD with a diagnosis of stroke. Date of Evaluation: 12/19/20 Physical Therapist: Jaylen Crocker DPT, OCS, CSCS - Visit Plan Frequency: 3x /Week Duration: 2 Months Plan: 3x/week for 6-8 weeks to start for... 1. Mobility of gait with hemiwalker and standing balance activities. [facility]. [facility] to facilitate R LE strength and ROM ex I as able. 3. Ensure PROM R LE at home and progress to strengthening ex for R LE. stretch gastroc soleus and HS. Monitor need for AFOs and pt to have OT for R UE and to continue in speech per POC. - Subjective Fiona present. communicates he had a stroke on Sep 23 (found old frontal lobe stroke). That day he fell asleep watching NASCAR adn woke up confused and rolling on and then off couch. Could not push up with R side. Looked confused. Had some OT on R hand with intermittent paralysis. Was seeing Catrina the neuro for that adn had NCT prior and it was OK. Needed craniotomy and brain still recovering and wearing helmet until can put skull back together. 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 Not able to do that now. Slept OK. Had some RONQUILLO prior and some mild back pain. Walked normally. I with ADLS prior. Hobbies included watching football and playing golf. Neurosurgeon said arm would probbly not come back but leg will c ome back. Sits on couch most of day. for mob ility. Can walk with assistance of hemiwalker and somebody moving R LE. He has started usin it lately. Needs Min A to get from couch to WC. Incntinent of #1 adn # 2. cleans up. helps onto shower bench and then he can wash some. Has hemiwalker at home. - Objective Pt pushed back to PT form speech by in WC that is patients. He can maneuver it with L arm and leg a little bit from place to place but hard to go distances across the floor. Sits slightly hunched in WC but I. Cervical AROm is good and WFL. L UE AROM WFL and strength at 4+. Helmet on and donned and doffed by today. L LE has strength 5/5 and good sensation to touch and pinch. Pt is only slightly verbal with a laugh here and there and a yeah (even when he means no) but can correct with a thuymbs down sign. Able to sit on low mat table and reach all directions without support and is good and steady. Trasnfer mat to stand with VC on L UE on table CGA. Stand with tee walker L mod I, unable to move R LE to correct LEROY on own. can stand 60+_ seconds I. Without tee walker is slightly unsteady and casn stand with most of weight through L. 5 seconds SBA. Walks with hemiwalker in L UE needing VC for stand up tall and look straight ahead. Progresses tee walker I, Needs Mod A to progress R LE and then bears some weight R LE to progress L LE mod I. Unable to show any strength or movement in R ankle or knee when asked today although he is able to keep his knee straight with WB when walking. Unable to flex hip or extend with 0/5 strength but did get some R knee flexion (the start of) as the walk went on when attempting to progress R LE. 2/5 hip abd and adduction on R. 0 knee flexion and ext, 0 ankle on R. - Balance/Special Test Scores Lower Extremity Functional Score: 17 - Goals Goal 1:: Walk with hemiwalker and SBA 100 feet mod I Goal Time Frame: 6-8 Weeks Goal 2:: Trasnfer out of chair and to mat table mod I Goal Time Frame: 4-6 Weeks Goal 3:: Stand and perform movement ex of R LE safe and mod I Goal Time Frame: 6-8 Weeks Goal 4:: I approp HEP for strength of R LE Goal Time Frame: 6-8 Weeks Goal 5:: up and down two steps with rail mod I Goal Time Frame: 6-8 Weeks - Rehabilitation Potential Physical Therapy Diagnosis: Unsteady on feet and poor mobility from stroke. Rehabilitation Potential: Fair - Anticipated Interventions Patient/Client Instruction: Educate patient on: Condition, Plan of Care For the Purpose of:: To increase ROM, To improve muscle performance and motor function, To improve ability to perform ADL's, To improve performance and independence with ADL's, To improve ability of physical actions for home/community/work/leisure, To improve gait and locomotor functions Therapeutic Exercise to Include: Strength training, Balance training, Postural training, Flexibilty training, Gait and locomotor training, Passive ROM, Active ROM For the Purpose of:: To increase ROM, To improve nutrient delivery to tissue, To improve muscle performance and motor function, To increase tolerance to activity /condition/position, To improve ability of physical actions for home/community/work/leisure, To improve gait and locomotor functions Manual Therapy Techniques to Include: Passive ROM For the Purpose of:: To increase ROM Thank you for the opportunity to evaluate your patient. For Medicare and Medicare HMO plans, please review the plan of care and approve it. It will need to be FAXED BACK to us at [phone] for Medicare purposes. For Medicare only, by signing this I certify the plan of care. Please let me know if there are questions or concerns regarding this plan of care. Physician Signature: Date:
--- NOTE | 2020-12-21 13:10 | HP.SP.AD ---
History - History Date of Eval: 12/19/20 Medical Diagnosis (from RX): CVA Date of Onset of Diagnosis: 09-25-20 Previous speech therapy: Yes Results: At [facility] in Acute, then at [facility], then home health. Patient is severely aphasic. Other Relevant Medical History/Diagnoses/Surgery: old frontal lobe CVA. 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 - Respiratory Status Comments: Patient had a trach previously but it was removed. Subjective Dysphagia - Current Diet Solids Current Diet: Soft - Current Diet Liquids Current Liquids: Thin Objective Cog/Ling/Com - Test Administered Piyjboihc-Wuuluxhhdm-Ugpwioqedzobg Assessment Administered: Yes Ewrqmsydc-Ddguqimzjx-Iyingesjwretr Assessment: Cognitive ? Linguistic skills were evaluated using patient/family interview, skilled observation and informal evaluation through tasks completed by the patient. - Identification Body parts/objects: Moderate - Answer Yes/No Questions Simple: WFL Complex: Moderate - Follows Commands 1 Step: Severe 2 Step: Severe - Automatic Sequences Automatic Sequences: Moderate - Repetition Words: Severe - Conversational Tasks Conversational Tasks: Severe Comments: Patient did not speak independently at all. He was able to say My name is Kenan Phillips when given a cue of /m/. It is a rote phrase and unable to use independently. PAtient was unable to identify any body parts upon verbal command. Objects in pictures he identified 100% with common objects. - Reading Picture-Word Matching Picture-Word matching: Mild - Reading Comprehension Words: Severe - Oral Reading Words: Severe - Writing Comments: Patient is right handed and currently unable to use right hand at all. - Executive Function Comments Comments: is completing medications and Plan - Plan Plan: Speech therapy is recommended for severe receptive and expressive aphasia. - Recommendations Treatment Warranted: Yes - Frequency Frequency: 3x /Week Visits in this POC: 24 - Prognosis Prognosis: Good - Goals that are Established: Determination:: Goals will be added/modified as deemed necessary and appropriate. Therapy will be discontinued when results of re-evaluation indicate therapy is no longer needed or lack of progress has been documented. - Goal #1-5 Goal #1: Kenan will complete 1 step directions with objects or actions on 4/5 trials on 2/3 consecutive sessions. Goal #2: Kenan will complete automatic speech sequences with minimal cues with 90% accuracy on 2/3 consecutive sessions. Goal #3: Kenan will label objects with maximal cues on 4/5 trials on 2/3 consecutive sessions. Goal #4: Kenan will use single words for phrase/sentence completion with 90% accuracy with no cues on 2/3 consecutive sessions. Education - Patient has Indicated that the Following Identified Educational Needs: Hearing/Vision/Speech Impaired - Patient Instruction Patient Education: Diagnosis, Treatment Plan Person Taught: Patient, Family Teaching Method: Discussion Response to teaching: Verbalize understanding
--- NOTE | 2020-12-28 07:44 | HP.OTEVAL ---
Patient's Visit Information JAZZY SKINNER is a 45 year old M, referred to Occupational Therapy by Dr. Noah Julian MD, with a diagnosis of CVA right side weakness. Date of Evaluation: 12/27/20 Occupational Therapist: Amelia De La Cruz, OTR/Carlie, CHT - Subjective This 45 year old male was seen for OT eval with dx of CVA right side weakness. Fiona present. communicates he had a stroke on Sep 23 (found old frontal lobe stroke). That day he fell asleep watching NASCAR and woke up confused and rolling on and then off couch. Could not push up with R side. Looked confused. This OT is familir with this pt was seen in past with radial nerve tingling/numbness and last check noted significat weakness where therapist advised pt to return to DR. on R hand with intermittent paralysis Was seeing Kimo the neuro for that and had NCT prior and it was OK. Needed craniotomy and brain still recovering and wearing helmet until can put skull back together. 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 Not able to do that now. Slept OK. Had some RONQUILLO prior and some mild back pain. Walked normally. I with ADLS prior. Hobbies included watching football and playing golf. Neurosurgeon said arm would probably not come back but leg will come back. Sits on couch most of day. WC for mobility. Can walk with assistance of tee walker and somebody moving R LE. He has started using it lately. Needs Min A to get from couch to WC. Incontinent of #1 and# 2. cleans up. helps onto shower bench and then he can wash some. Has tee walker at home. - ADLs Comments: pt lives with and two small children. pt is dependent with all care at this time. - Pain right arm 6 Pain Intensity Range: 4 - ROM ROM Comments: flaccid right UE. left UE WNL - Strength Shoulder: right 0 left 4+/5 Elbow: right 0 left 4+/5 Levers Lace Machine Operator: right unable left 55# Lateral Pinch: right unable left 18# Tripod Pinch: right unable left 14# - Sensation Stereognosis: Abnormal - Right, Normal - Left Kinesthesia: Abnormal - Right, Normal - Left Proprioception: Abnormal - Right, Normal - Left Sensation Comments: pt repots he can feel sensation touch but pt struggles with cognitive - Movement Muscle Tone: min tone shoulder, elbow/ wrist and digits- Movement Comments: flaccid right UE - Stroke Specific Quality of Life Total SS-QOL Score: 69 - Goals Goal:: pt will demo MMT at 4/5 of right UE by d.c to return to using right UE with ADLs and IADLs. Goal:: pt will demo shoulder flexion to 120* by d/c to increase pts ind. with ADLs and IADLS. pt will demo a increase in right elbow ROM 0/130 to increases use of right UE with ADls. pt will demo forearm sup/pron to WNL to return to using right UE for ADLs. pt will demo digit mobility to grasp large and small objects by d/c Goal:: pt will demo a right hand grasp/release and pinch to use right UE to perform writing tasks by d/c Goal:: will report pts participation with ADLs at a 75% ability by d/c - Rehabilitation General Assessment: pt demo with right side weakness following a CVA 2020. pt demo a need for skilled OT services 2-3x week for 8 weeks to assist pt in understanding dx, HEP, intensive care nurse ed, and initiate Dave-re-ed for pt to achive a maximal rehab potential with return of right UE movement and strength to return to performing ADls at SBA level. pt and pts demo understanding and agree to POC. Rehabilitation Potential: Good - Anticipated Interventions A/AAROM/PROM, Strengthening, Sensory Retraining, Modalities, Orthoses, Dynamic Sitting Balance, Fine Motor Coord/Jamaal, Neuro Reeducation, Education re assistive Equipment, Education re Diagnosis, Caregiver Training - Visit Plan Frequency: 2-3x /Week Duration: 2 Months TEXT: Thank you for the opportunity to evaluate your patient. For Medicare and Medicare HMO plans, please review the plan of care and approve it. It will need to be FAXED BACK to us at [phone] for Medicare purposes. Please let me know if there are questions or concerns regarding this plan of care. Physician Signature: Date:
--- NOTE | 2021-05-10 11:42 | HP.SP.DC_ITS ---
ST Discharge Summary - Discharged: Discharge: Kenan Phillips is discharged from [facility] Speech therapy as of 05/10/21. He was initially evaluated on 12/19/20 following his CVA with therapy recommended 3 times a week for severe aphasia. Therapy focused on following single step directions, completion of automatic speech tasks, identification of body parts and labeling objects/pictures. Kenan was treated for 8 visits then lost insurance. Three visits were no showed in January, possibly due to lack of insurance coverage as was determining insurance. Limited progress noted due to short time in therapy. Please see daily notes for details. Thank you for allowing me to participate in the care of this patient.
== END 2021-01-16 19:00 | disposition home or self-care (01) ==
LOC: SP 13:00
PROVIDERS: PCP Family Medicine; Referring Provider Family Medicine; Visit Provider Family Medicine
DX: Z86.73 Personal history of transient ischemic attack (TIA), and cerebral infarction without residual deficits (principal)
CPT/HCPCS: 92507; 92523; 97014; 97110; 97112; 97116; 97163; 97166; G0283

== ENCOUNTER 2021-02-16 14:16 | Emergency (ER) | payer MEDICAID, SELFPAY ==
[2021-02-16 14:16] VITALS: BP 159/95; PULSE 66; RESP 16; TEMP 36.6; O2SAT 93; BMI 29.0
--- NOTE | 2021-02-16 14:35 | EKG12_ITS ---
Test Reason : GENERAL Blood Pressure : / mmHG Vent. Rate : 068 BPM Atrial Rate : 068 BPM P-R Int : 160 ms QRS Dur : 076 ms QT Int : 396 ms P-R-T Axes : 046 021 054 degrees QTc Int : 421 ms Sinus rhythm with marked sinus arrhythmia Otherwise normal ECG Confirmed by HEATHER GLEZ, JA ([id number]), film and video editor TRIXIE MCKEON ([id number]) on 02/22/2021 11:17:35 AM Referred By: CHARITY Confirmed By:JA ROMERO MD
--- NOTE | 2021-02-16 15:23 | EX.ED.DYSGE1 ---
HPI History of Present Illness Chief Complaint: General Illness Narrative Narrative: 45-year-old male patient with history of ischemic stroke and expressive aphasia presenting for cough and generalized fatigue for the last 3 days. Patient's states that she noted a fever of 100.6 this morning. Patient has not been vaccinated for COVID-19. She does not know of any exposures to COVID-19. Patient has not had COVID-19 previously. He is not complaining of chest pain. He is not had any nausea or vomiting. No diarrhea constipation. Significant other states that he is concern for aspiration pneumonia as he has had this before. [facility] Medical History Stroke/cerebrovascular accident Home Medications cholecalciferol (vitamin D3) 1,250 mcg (50,000 unit) capsule 1,250 mcg PO QWEEK #4 cap 08/01/20 [Rx Last Taken Unknown] acetaminophen 975 mg PO Q6H PRN 01/13/21 [History Last Taken Unknown] aspirin 81 mg PO DAILY 01/13/21 [History Last Taken Unknown] baclofen 10 mg PO DAILY 01/13/21 [History Last Taken Unknown] donepezil 5 mg PO DAILY 01/13/21 [History Last Taken Unknown] famotidine 20 mg PO DAILY 01/13/21 [History Last Taken Unknown] fluoxetine 20 mg PO DAILY 01/13/21 [History Last Taken Unknown] mirtazapine 15 mg PO DAILY 01/13/21 [History Last Taken Unknown] Allergy/AdvReac Type Severity Reaction Status Date / Time No Known Allergies Allergy Verified 01/13/21 21:31 Surgical History History of craniotomy Social History Smoking Status: Former smoker Electronic Cigarette Use: not used second hand exposure: Yes alcohol intake: never substance use type: does not use ROS ROS ED Constitutional Constitutional ED: Reports chills and fever(s) Eyes Eyes: Denies blurry vision or diplopia ENT ENT ED: Reports rhinorrhea; Denies sore throat Cardiovascular Cardiovascular: Denies chest pain or palpitations Respiratory/Chest Respiratory/Chest: Reports cough and dyspnea Gastrointestinal Gastrointestinal: Denies abdominal pain, diarrhea, nausea or vomiting Genitourinary Genitourinary ED: Denies dysuria or hematuria Musculoskeletal Musculoskeletal: Reports myalgias; Denies arthralgias or neck pain Integumentary Denies Abrasions or rash Neurologic Neurologic: Reports headache(s); Denies paresthesias or weakness EXAM Physical Exam Const Vital Signs: 02/16/21 14:16 02/16/21 15:11 Temperature 97.9 F Temperature Source Temporal Pulse Rate 66 Respiratory Rate 16 Respiratory Effort Normal Non-Labored Respiratory Pattern Normal Blood Pressure 159/95 H Blood Pressure Mean 116 Pulse Ox 93 Oxygen Delivery Method Room Air Positive well nourished General Appearance ED: NAD; Negative for pallor HEENT Reports dry mucous membranes Negative for trauma Mouth ED: Yes dry mucous membranes Mouth: dry mucous membranes Eyes PERRL and EOMs intact bilaterally Neck no lymphadenopathy and supple Resp normal respiratory effort and clear to auscultation bilaterally Cardio regular rate and regular rhythm Neuro Sensorium / Orientation: alert Psych mental status grossly normal Skin no rashes or lesions noted General Skin Exam: Negative for jaundice or pallor MDM MDM MDM Narrative Medical decision making narrative: 45-year-old male presenting with his out of concern for a fever today. He is only had 1. He is felt generally fatigued over the last couple of days. His notes that his oxygen saturations have been anywhere between 93 to 96%. He does have a mild cough. No nausea or vomiting. Patient's nonambulatory secondary to stroke. I did obtain an EKG which on my interpretation is a sinus rhythm with a ventricular rate of 68 bpm without sign of ischemic change. Chest x-ray on my interpretation shows possible basilar atelectasis but I do not see any infiltrates. CBC shows no leukocytosis, leukopenia, lymphopenia. Renal function electrolytes are normal. LFTs are normal. High-sensitivity troponin is 4. D-dimer was elevated at 0.66 and he did have a CTA of the chest which does not identify any PE or dissection. There is no visualized infiltrates. There are no groundglass opacities. On reevaluation the patient is 96% in the room. He does not look toxic. His heart rate is in the 60s. Respirate 16. Patient does have an incentive spirometer that he uses at home which he is encouraged to use more frequently. If he has any return or worsening of symptoms he is to return to the ER. Impression: 1. Fever resolved 2. Dyspnea Lab Data Attestation: I reviewed the patient's lab results. Labs: Laboratory Results - last 24 hr 02/16/21 02/16/21 02/16/21 15:30 15:30 15:30 WBC 5.7 RBC 5.18 Hgb 14.7 Hct 44.4 MCV 85.7 MCH 28.4 MCHC 33.1 RDW Std Deviation 40.4 RDW Coeff of Scott 12.8 Plt Count 191 MPV 10.4 Immature Gran % (Auto) 0.200 Neut % (Auto) 59.5 Lymph % (Auto) 30.3 [place] % (Auto) 4.9 Eos % (Auto) 4.6 Baso % (Auto) 0.5 Absolute Neuts (auto) 3.4 Absolute Lymphs (auto) 1.73 Nucleated RBC % 0 D-Dimer Quant (PE/DVT) 0.66 H* Sodium 140 Potassium 4.5 Chloride 108 H Carbon Dioxide 26.0 Anion Gap 6 BUN 12 Creatinine 0.86 Estim Creat Clear Calc 102.48 Est GFR (MDRD) Af Amer 123 Est GFR (MDRD) Non-Af 102 BUN/Creatinine Ratio 13.9 Glucose 90 Calcium 8.6 Total Bilirubin 0.30 AST 29 ALT 58 Alkaline Phosphatase 105 Troponin I High Sens 4 Total Protein 7.4 Albumin 3.5 Globulin 3.9 Albumin/Globulin Ratio 0.9 Radiography Diagnostic Testing: Clinical Impression(s) from Imaging Studies Chest X-Ray 02/16/21 15:40 IMPRESSION: Mild bibasilar opacities, likely atelectasis or inflammation. at 1622 Reported and signed by: Elke Bailey MD Electronically Signed: Elke Bailey MD at 16:24 EST Tel , Service support , Chest CTA 02/16/21 16:11 IMPRESSION: Negative CTA chest. Individualized dose optimization techniques were used for this CT. at 1655 Reported and signed by: Robbi Vitale MD Electronically Signed: Robbi Vitale MD at 16:54 EST Tel , Service support , Discharge Plan Triage Chief Complaint: General Illness ED Provider: Geoffrey Rodriguez Dx/Rx/DC Orders Instructions: ED Viral Syndrome (Adult) Prescriptions: No Action cholecalciferol (vitamin D3) 1,250 mcg (50,000 unit) capsule 1,250 mcg PO QWEEK Qty: 4 RF: 1 acetaminophen 325 mg Tablet 975 mg PO Q6H PRN (Reason: Pain) RF: 0 donepezil 5 mg tablet 5 mg PO DAILY RF: 0 famotidine 20 mg tablet 20 mg PO DAILY RF: 0 baclofen 10 mg tablet 10 mg PO DAILY RF: 0 fluoxetine 20 mg tablet 20 mg PO DAILY RF: 0 aspirin 81 mg Tablet 81 mg PO DAILY RF: 0 mirtazapine 15 mg tablet 15 mg PO DAILY RF: 0 Primary Care Provider: Noah Julian Referrals: Noah Julian MD [Primary Care Provider] - Disposition Disposition: Home, Self Care
--- NOTE | 2021-02-16 15:40 | RAD_ITS ---
HISTORY: cough. TECHNIQUE: XR Chest 1 View. # of images incl. paperwork: 1. COMPARISON: 01/13/2021. FINDINGS: CARDIOMEDIASTINAL STRUCTURES: Cardiac silhouette not enlarged. Mediastinal contour unremarkable. LUNGS: Mild linear bibasilar opacities. PLEURA: No pleural effusion or pneumothorax. OSSEOUS STRUCTURES: Unremarkable. RAD/Chest 1 View (Portable) IMPRESSION: Mild bibasilar opacities, likely atelectasis or inflammation. at 1625 Reported and signed by: Elke Bailey MD Electronically Signed: Elke Bailey MD at 16:24 EST Tel , Service support ,
[2021-02-16 15:41] LABS: Absolute Lymphocyte Count 1.73 X10^3/uL (0.83-4.51); Absolute Neutrophil Count 3.4 X10^3/uL (2.0-7.7); Basophil# 0.03 X10^3/uL; Basophil% 0.5 % (0-1); Eosinophil# 0.26 X10^3/uL; Eosinophils% 4.6 % (0-5); Hematocrit 44.4 % (40-54); Hemoglobin 14.7 g/dL (13.0-16.5); Lymphocyte # 1.73 X10^3/ul (0.83-4.51); Lymphocyte % 30.3 % (19-41); Mean Corp Hgb Conc 33.1 g/dL (32-36); Mean Corpuscular Hgb 28.4 pg (27.0-32.0); Mean Corpuscular Volume 85.7 fL (80-94); Mean Platelet Vol. 10.4 fl (6.2-12.0); Monocyte# 0.28 X10^3/uL; Monocyte% 4.9 % (0-10); NRBC Flagged by Analyzer 0 % (0-5); Neutrophil % 59.5 % (47-70); Platelet Count 191 K/mm3 (150-450); RBC Distribution Width CV 12.8 % (11.6-14.6); RBC Distribution Width SD 40.4 fl (35.1-43.9); Red Blood Count 5.18 M/mm3 (4.6-6.2); White Blood Count 5.7 K/mm3 (4.4-11.0)
[2021-02-16 15:58] LABS: D-Dimer Quantitative (DVT/PE) 0.66 FEU/ug/m (0.27-0.49)
[2021-02-16 16:03] LABS: ALB/GLOB Ratio 0.9 RATIO (0.9-2.4); AST(SGOT) 29 U/L (15-37); Alanine Aminotransfer ALT/SGPT 58 U/L (16-61); Albumin, Serum 3.5 g/dL (3.2-5.0); Alkaline Phosphatase 105 U/L (45-117); Anion Gap 6 (5-15); BUN 12 mg/dL (7-18); BUN/Creat Ratio 13.9 RATIO (10-20); Calcium,Total 8.6 mg/dL (8.5-10.1); Chloride 108 mmol/L (98-107); Creatinine, Serum 0.86 mg/dL (0.70-1.30); EST Glomerular Filtration Rate 102 mL/min (>60); Est Glom Filt Rate - Afr Amer 123 mL/min (>60); Estimated Creatinine Clearance 102.48 ml/min; Globulin 3.9 g/dL (2.2-4.2); Glucose 90 mg/dL (74-106); Potassium 4.5 mmol/L (3.5-5.1); Protein, Total 7.4 g/dL (6.4-8.2); Sodium Level 140 mmol/L (136-145); Troponin-I HS 4 pg/mL (3.0-78.0)
--- NOTE | 2021-02-16 16:11 | CT_ITS ---
EXAM: CT ANGIOGRAPHY CHEST WITHOUT AND WITH INTRAVENOUS CONTRAST : 1975 CLINICAL INDICATION: dyspnea TECHNIQUE: Helically acquired angiography images were obtained of the chest without and with intravenous contrast. This CT exam was performed using one or more of the following dose reduction techniques: automated exposure control, adjustment of the mA and/or kV according to patient size, and/or use of iterative reconstruction technique. This report was created using [employer] report generation technology. MIP reconstructed images were created and reviewed. CONTRAST: IV 100mL [id number] COMPARISON: None. FINDINGS: PULMONARY ARTERIES: Unremarkable. Normal in caliber. No evidence of pulmonary embolism. AORTA: Unremarkable. Normal in caliber. No evidence of dissection. GREAT VESSELS OF AORTIC ARCH: Unremarkable. Normal in caliber. No evidence of dissection. LUNGS AND PLEURAL SPACES: Unremarkable. No mass. No consolidation or edema. No pleural effusion or thickening. No pneumothorax. HEART: Unremarkable. Heart size is normal. No pericardial effusion. No signs of right heart strain, ratio of right ventricle to left ventricle measures less than 1. MEDIASTINUM: Unremarkable. No mediastinal or hilar adenopathy. Esophagus is unremarkable. No hiatal hernia. THYROID: Unremarkable. No thyroid lesions. BONES/JOINTS: Unremarkable. No suspicious lytic or blastic abnormality. CT/CTA Chest W/WO Contrast IMPRESSION: Negative CTA chest. Individualized dose optimization techniques were used for this CT. at 1655 Reported and signed by: Robbi Vitale MD Electronically Signed: Robbi Vitale MD at 16:54 EST Tel , Service support ,
[2021-02-16 18:10] VITALS: BP 124/77; PULSE 62; RESP 15; O2SAT 97
== END 2021-02-16 18:11 | disposition home or self-care (01) ==
PROVIDERS: Emergency Provider Student in an Organized Health Care Education/Training Program; PCP Family Medicine
DX: R50.9 Fever, unspecified (principal); R06.00 Dyspnea, unspecified; I69.320 Aphasia following cerebral infarction; Z28.3 Underimmunization status; Z79.82 Long term (current) use of aspirin; Z79.899 Other long term (current) drug therapy; Z87.891 Personal history of nicotine dependence
CPT/HCPCS: 71045; 71275; 80053; 84484; 85025; 85379; 87426; 93005; 99285; Q9967; A4216

== ENCOUNTER → 2021-04-04 14:56 | Outpatient (CLI) | payer MEDICAID, SELFPAY ==
--- NOTE | 2021-04-04 15:25 | CT_ITS ---
STUDY: CT BRAIN WITHOUT CONTRAST REASON FOR EXAM: Male, 45 years old. CEREBRAL EDEMA TECHNIQUE: Transaxial CT imaging of the brain was performed without administration of intravenous contrast material. Individualized dose optimization techniques were used for this CT. COMPARISON: Sep 25 2020 4:38pm Jan 13 2021 10:04pm FINDINGS: There is a stable left craniectomy. There is bulging and a large area of encephalomalacia involving the region of the left MCA suggesting a remote large left MCA distribution infarct. There is minimal [id number] midline shift of 4mm. Compensatory enlargement of the left lateral ventricle. Normal size ventricles and extra-axial spaces for the patient''s age. Normal white matter tracts of the cerebral hemispheres. Normal basal ganglia and thalami. Normal brainstem. Normal cerebellum. There is no intracranial hemorrhage. There are no findings of an acute ischemic infarction. Normal visualized paranasal sinuses. ASPECTS 10 CT/Brain/Head without Contrast IMPRESSION: There are findings suggesting a stable decompressive craniectomy of the left calvarium with stable herniation of old infarcted left cerebral hemisphere beyond the cortex of the calvarium. Electronically Signed: Leno Negron MD at 16:05 EST ,
== END ==
PROVIDERS: PCP Family Medicine
DX: G93.6 Cerebral edema (principal)
CPT/HCPCS: 70450

== ENCOUNTER → 2021-05-10 14:29 | Outpatient (CLI) | payer MEDICAID, SELFPAY | PROVIDERS: PCP Family Medicine | DX: Z20.822 Contact with and (suspected) exposure to COVID-19 (principal) | CPT/HCPCS: 87635; C9803; U0003; U0005 ==

== ENCOUNTER 2023-06-08 09:53 | Emergency (ER) | payer MEDICAID, SELFPAY ==
[2023-06-08] VITALS (15 sets, daily range): BP systolic 115–138; BP diastolic 72–115; PULSE 53–88; RESP 8–18; TEMP 36.4–36.7; O2SAT 94–99; BMI 38.8
--- NOTE | 2023-06-08 10:15 | EDS_ITS ---
HPI History of Present Illness Chief Complaint: Abscess Informant: patient Onset/Context/Timing Onset: Weeks (1) Context: Gradual Onset Timing: Continuous Quality: Swollen, erythematous Location: Left parietal area Worsened by: Nothing Relieved by: Nothing Narrative Narrative: Patient presents with possible wound infection from brain surgery that has been getting worse over the past week. states that the surgical area has gotten more swollen. She noted some redness that is spreading towards his left eye and periorbital area. denies any fevers or chills. denies any discharge or drainage. states the patient has been complaining of a headache. denies any nausea or vomiting. denies any cough or shortness of breath. Patient is nonverbal and a poor informant. [facility] Medical History (Updated 06/08/23 @ 15:[address] Jaylen Han DO) Stroke/cerebrovascular accident Home Medications cholecalciferol (vitamin D3) 1,250 mcg (50,000 unit) capsule 1,250 mcg PO QWEEK #4 caps 08/01/20 [Rx Last Taken Unknown] acetaminophen 325 mg tablet 975 mg PO Q6H PRN Pain 01/13/21 [History Last Taken Unknown] aspirin 81 mg tablet 81 mg PO DAILY 01/13/21 [History Last Taken Unknown] baclofen 10 mg tablet 10 mg PO DAILY 01/13/21 [History Last Taken Unknown] donepezil 5 mg tablet 5 mg PO DAILY 01/13/21 [History Last Taken Unknown] famotidine 20 mg tablet 20 mg PO DAILY 01/13/21 [History Last Taken Unknown] fluoxetine 20 mg tablet 20 mg PO DAILY 01/13/21 [History Last Taken Unknown] mirtazapine 15 mg tablet 15 mg PO DAILY 01/13/21 [History Last Taken Unknown] cephalexin 500 mg capsule 500 mg PO Q6 #40 CAPSULES 06/08/23 [Rx Last Taken Unknown] Allergy/AdvReac Type Severity Reaction Status Date / Time No Known Allergies Allergy Verified 06/08/23 09:54 Surgical History (Updated 06/08/23 @ 10:[address] Jaylen Han DO) History of craniotomy History of herniorrhaphy Hx of tracheostomy Social History Smoking Status: Former smoker Electronic Cigarette Use: not used second hand exposure: Yes alcohol intake: never substance use type: does not use ROS ROS ED Constitutional Constitutional ED: Denies chills or fever(s) Respiratory/Chest Respiratory/Chest: Denies cough or dyspnea Gastrointestinal Gastrointestinal: Denies nausea or vomiting Integumentary Reports abscess Neurologic Neurologic: Reports headache(s) Allergic/Immunologic Allergic/Immunologic ED: Denies urticaria EXAM Physical Exam Const Vital Signs: 06/08/23 09:54 06/08/23 09:58 06/08/23 10:58 Temperature 97.5 F L 98 F 98 F Temperature Source Temporal Temporal Temporal Pulse Rate 72 74 88 Respiratory Rate 18 16 18 Blood Pressure 134/75 H 134/72 H 130/76 H Blood Pressure Mean 94 92 94 Pulse Ox 95 98 96 Oxygen Delivery Method Room Air Room Air Room Air 06/08/23 11:00 06/08/23 11:58 06/08/23 12:00 Temperature 98 F 98.1 F Temperature Source Temporal Temporal Pulse Rate 69 71 61 Respiratory Rate 18 18 16 Blood Pressure 115/74 138/84 H 120/77 Blood Pressure Mean 87 102 91 Pulse Ox 99 95 Oxygen Delivery Method Room Air Room Air Positive well nourished and well developed General Appearance ED: well developed and NAD HEENT Reports moist mucous membranes HEENT Narrative: There is edema and fluctuance over the left parietal area. There is some mild erythema over the left temporal area and left side of his face. There is no active discharge or drainage noted. Neck supple and no JVD Resp normal respiratory effort and clear to auscultation bilaterally Cardio regular rate and regular rhythm GI non-tender and non-distended Palpation: soft Neuro CN's II-XII intact bilaterally Sensorium / Orientation: alert MDM MDM MDM Narrative Medical decision making narrative: Differential diagnosis includes abscess, intracranial bleeding, hydrocephalus, wound infection, cellulitis, and the sepsis. CT scan of the brain will be obtained to assess for abscess, hydrocephalus, intracranial bleeding, and wound infection. CBC will be obtained to assess for leukocytosis and anemia. Basic metabolic profile will be obtained to assess for renal function and electrolyte abnormality. Blood culture will be obtained to correct for sepsis. Serum lactate will be obtained to assess for sepsis. Lab Data Attestation: I reviewed the patient's lab results. Lab results narrative: CBC was reviewed. There is a mild anemia with a hemoglobin of 10.0 and hematocrit of 32.8. White blood cell count was normal at 6.0. Platelets were normal. PT with INR and PTT were reviewed. PT was INR was within normal limits. PTT was slightly elevated at 48.4. Basic metabolic profile was reviewed and was within normal limits. Serum lactate was reviewed and was normal at 1.7. Labs: Laboratory Results - last 24 hr 06/08/23 10:20 WBC 6.0 RBC 3.89 L Hgb 10.0 L Hct 32.8 L MCV 84.3 MCH 25.7 L MCHC 30.5 L RDW Std Deviation 44.5 H RDW Coeff of Scott 14.5 Plt Count 309 MPV 9.5 Immature Gran % (Auto) 1.000 H Neut % (Auto) 60.6 Lymph % (Auto) 24.7 [place] % (Auto) 7.0 Eos % (Auto) 6.0 H Baso % (Auto) 0.7 Absolute Neuts (auto) 3.6 Absolute Lymphs (auto) 1.48 Nucleated RBC % 0 PT 13.5 INR 1.0 APTT 48.4 H Sodium 139 Potassium 4.2 Chloride 107 Carbon Dioxide 25.0 Anion Gap 7 BUN 12 Creatinine 1.07 Estim Creat Clear Calc 102.15 Est GFR (MDRD) Af Amer 95 Est GFR (MDRD) Non-Af 79 BUN/Creatinine Ratio 11.2 Glucose 105 Lactic Acid 1.7 Calcium 8.7 Radiography Diagnostic Testing: Clinical Impression(s) from Imaging Studies Brain CT 06/08/23 10:24 IMPRESSION: Postsurgical changes from a left temporal craniectomy with subjacent encephalomalacia in the left temporal and parietal lobes associated dural thickening. Low density fluid and edema noted in the left temporal and parietal scalp overlying the craniectomy site. No fluid collection is identified. If indicated, further evaluation with a contrast-enhanced CT or MRI can be performed. No acute bleed or infarct. Chronic ischemic and atrophic changes. Electronically Signed: Ronen Borja MD at 11:10 EDT , Brain CT 06/08/23 11:29 IMPRESSION: 1. Minimal contrast enhancement of the extra-axial membrane underneath the left craniotomy site but no abnormal contrast enhancement of the postoperative fluid collection overlying the left craniotomy site causing bulging of the left scalp. This may be postop seroma. Thickening of the left temporalis muscle in the suprazygomatic portion of the left temporal fossa is unchanged. 2. Cystic encephalomalacia and atrophy involving the left MCA territory and presumably surgical cavity underneath the left craniotomy. This is MCA territory infarct accounts for Wallerian degeneration of the left cerebral peduncle and and much smaller size of the left thalamus when compared to the right. 3. No significant interval change when compared to noncontrast CT head scan of 06/08/2023. Electronically Signed: Vinay Majano MD at 12:46 EDT , CT scan of the brain was obtained. There are postsurgical changes with mild dural thickening. There is edema and low-density fluid in the left temporal and parietal scalp. Contrast-enhanced CT was recommended to further evaluate swelling. This was interpreted by the radiologist and was independently reviewed by myself. CT scan of the brain with contrast was obtained. There is minimal enhancement of the of the extra-axial membrane underneath the left craniotomy site. There is no contrast-enhancement of the fluid collection. This may be a postop seroma. There is thickening of the left temporalis muscle and the supra zygomatic portion of the left temporal fossa which is unchanged. This was interpreted by the radiologist and was also dependently reviewed by myself. Treatment and Re-Evaluation :: Patient and spouse were advised of his findings. Case was discussed with Dr. Frey, neurosurgeon at [facility]. He will follow-up with the patient as an outpatient. He did review the CT scans. Patient was given a prescription for Keflex. Patient was instructed to follow-up in 3 to 5 days. Patient and family understood and were agreeable with the plan. All questions were answered. Discharge Plan Triage Chief Complaint: Abscess ED Provider: Jaylen Han Dx/Rx/DC Orders Clinical Impression: Cellulitis Instructions: ED Cellulitis Prescriptions: New cephalexin [cephalexin] 500 mg capsule 500 mg PO Q6 Qty: 40 0RF No Action cholecalciferol (vitamin D3) 1,250 mcg (50,000 unit) capsule 1,250 mcg PO QWEEK Qty: 4 1RF acetaminophen 325 mg Tablet 975 mg PO Q6H PRN (Reason: Pain) donepezil 5 mg tablet 5 mg PO DAILY famotidine 20 mg tablet 20 mg PO DAILY baclofen 10 mg tablet 10 mg PO DAILY fluoxetine 20 mg tablet 20 mg PO DAILY aspirin 81 mg Tablet 81 mg PO DAILY mirtazapine 15 mg tablet 15 mg PO DAILY Primary Care Provider: Pete Blue Referrals: Noah Julian MD [Med Staff - Active Staff] - Disposition Disposition: Home, Self Care
--- NOTE | 2023-06-08 10:24 | CT_ITS ---
STUDY: CT BRAIN WITHOUT CONTRAST REASON FOR EXAM: Male, 48 years old. Status post craniectomy with skull flap. Swelling. Evaluate for infection. RADIATION DOSAGE (If Supplied By Facility): CTDIvol = ( 44.99 ) mGy, DLP = ( 829.85 ) mGycm TECHNIQUE: Transaxial CT imaging of the brain was performed without administration of intravenous contrast material. Individualized dose optimization techniques were used for this CT. COMPARISON: No relevant prior comparison study available FINDINGS: PARENCHYMA: There are postsurgical changes from a left temporal craniectomy with subjacent encephalomalacia in the left temporal and parietal lobes associated dural thickening. There is no acute bleed or infarct. There are chronic ischemic and atrophic changes. VENTRICLES: There is no hydrocephalus. MASTOID AIR CELLS AND PARANASAL SINUSES: The visualized paranasal sinuses are clear. The mastoid air cells are clear. BONES: There is no skull fracture. SOFT TISSUES: There is low density fluid and edema noted in the left temporal and parietal scalp overlying the craniectomy site. No fluid collection is identified. If indicated, further evaluation with a contrast-enhanced CT or MRI can be performed. CT/Brain/Head without Contrast IMPRESSION: Postsurgical changes from a left temporal craniectomy with subjacent encephalomalacia in the left temporal and parietal lobes associated dural thickening. Low density fluid and edema noted in the left temporal and parietal scalp overlying the craniectomy site. No fluid collection is identified. If indicated, further evaluation with a contrast-enhanced CT or MRI can be performed. No acute bleed or infarct. Chronic ischemic and atrophic changes. Electronically Signed: Ronen Borja MD at 11:10 EDT ,
[2023-06-08 10:33] LABS: Absolute Lymphocyte Count 1.48 X10^3/uL (0.83-4.51); Absolute Neutrophil Count 3.6 X10^3/uL (2.0-7.7); Basophil# 0.04 X10^3/uL; Basophil% 0.7 % (0-1); Eosinophil# 0.36 X10^3/uL; Hematocrit 32.8 % (40-54); Lymphocyte # 1.48 X10^3/ul (0.83-4.51); Lymphocyte % 24.7 % (19-41); Mean Corp Hgb Conc 30.5 g/dL (32-36); Mean Corpuscular Hgb 25.7 pg (27.0-32.0); Mean Corpuscular Volume 84.3 fL (80-94); Mean Platelet Vol. 9.5 fl (6.2-12.0); Monocyte# 0.42 X10^3/uL; NRBC Flagged by Analyzer 0 % (0-5); Neutrophil # 3.62 X10^3/uL (2.7-7.7); Neutrophil % 60.6 % (47-70); Platelet Count 309 K/mm3 (150-450); RBC Distribution Width CV 14.5 % (11.6-14.6); RBC Distribution Width SD 44.5 fl (35.1-43.9); Red Blood Count 3.89 M/mm3 (4.6-6.2)
[2023-06-08 10:40] LABS: Partial Thromboplast Time 48.4 Seconds (24.1-36.2); Prothrombin Time (Protime)PT. 13.5 SECONDS (11.7-14.9)
[2023-06-08 10:41] LABS: Anion Gap 7 (5-15); BUN 12 mg/dL (7-18); BUN/Creat Ratio 11.2 RATIO (10-20); Calcium,Total 8.7 mg/dL (8.5-10.1); Chloride 107 mmol/L (98-107); Creatinine, Serum 1.07 mg/dL (0.70-1.30); EST Glomerular Filtration Rate 79 mL/min (>60); Est Glom Filt Rate - Afr Amer 95 mL/min (>60); Estimated Creatinine Clearance 102.15 ml/min; Glucose 105 mg/dL (74-106); Potassium 4.2 mmol/L (3.5-5.1); Sodium Level 139 mmol/L (136-145)
[2023-06-08 10:56] LABS: Lactic Acid 1.7 mmol/L (0.4-1.9)
--- NOTE | 2023-06-08 11:29 | CT_ITS ---
EXAM: CT HEAD WITH INTRAVENOUS CONTRAST CLINICAL INDICATION: Swelling TECHNIQUE: Multiple axial images were obtained of the head with intravenous contrast. This CT exam was performed using one or more of the following dose reduction techniques: automated exposure control, adjustment of the mA and/or kV according to patient size, and/or use of iterative reconstruction technique. CONTRAST: 50 mL of IV [id number]. RADIATION DOSE: CTDIvol = 44.99 mGy, DLP = 829.85 mGy-cm COMPARISON: CT head without contrast 06/08/2023 at 10:47 AM. FINDINGS: BRAIN AND EXTRA-AXIAL SPACES: Cystic encephalomalacia and/or postoperative surgical cavity in the left cerebral hemisphere and ex vacuo dilatation of the left lateral ventricle. Soft tissue thickening underneath the left craniotomy is unchanged. Thickening of the left temporalis muscle in the suprazygomatic portion of the left temporal fossa is unchanged. There is minimal contrast enhancement of the extra-axial membrane underneath the craniotomy site. No intracranial bleeding. No evidence of acute infarct. No intracranial mass or mass effect. There is preservation of the giraldo/white matter interface. Posterior fossa structures are unremarkable. No hydrocephalus. Basal cisterns are patent. BONES/JOINTS: Nonenhancing prominent postoperative fluid collection overlying the left craniotomy site causing bulging of the scalp. This measures approximately 2 cm thick and 10.4 cm long. Pulmonary and degeneration of the left cerebral peduncle is unchanged. SINUSES: Unremarkable as visualized. Clear. MASTOID AIR CELLS: Unremarkable. Clear. ORBITS: Visualized globes, extraocular muscles, optic nerves and retrobulbar fat appear unremarkable. CT/Brain/Head WITH Contrast IMPRESSION: 1. Minimal contrast enhancement of the extra-axial membrane underneath the left craniotomy site but no abnormal contrast enhancement of the postoperative fluid collection overlying the left craniotomy site causing bulging of the left scalp. This may be postop seroma. Thickening of the left temporalis muscle in the suprazygomatic portion of the left temporal fossa is unchanged. 2. Cystic encephalomalacia and atrophy involving the left MCA territory and presumably surgical cavity underneath the left craniotomy. This is MCA territory infarct accounts for Wallerian degeneration of the left cerebral peduncle and and much smaller size of the left thalamus when compared to the right. 3. No significant interval change when compared to noncontrast CT head scan of 06/08/2023. Electronically Signed: Vinay Majano MD at 12:46 EDT ,
--- NOTE | 2023-06-08 13:20 | NURSING ---
CALLED [facility] FOR DR IHLL. FAXED FACESHEET AND HAD CTS TRANSMITTED
--- NOTE | 2023-06-08 14:57 | NURSING ---
CALLED [facility], TALKED TO MALINA. DR HILL HAS BEEN PAGED TWICE, LAST TIME WAS 6 MIN AGO
[2023-06-08] MEDS: Cephalexin 500 MG Capsule PO (15:33)
== END 2023-06-08 15:40 | disposition home or self-care (01) ==
PROVIDERS: Emergency Provider Emergency Medicine; PCP Family Medicine; Visit Provider Emergency Medicine
DX: L03.811 Cellulitis of head [any part, except face] (principal); Z93.0 Tracheostomy status; Z87.891 Personal history of nicotine dependence; Z86.73 Personal history of transient ischemic attack (TIA), and cerebral infarction without residual deficits
CPT/HCPCS: 70450; 70460; 80048; 83605; 85025; 85610; 85730; 87040; 99282; Q9967; A4216

== ENCOUNTER 2023-06-14 11:59 | Emergency (ER) | payer MEDICAID, SELFPAY ==
[2023-06-14 12:00] VITALS: BP 139/87; PULSE 70; RESP 18; TEMP 36.9; O2SAT 96; BMI 35.5
--- NOTE | 2023-06-14 12:20 | EX.ED.DYSGE1 ---
HPI History of Present Illness Chief Complaint: Wound Check Informant: patient and SNF (Documentation) Narrative Narrative: 48-year-old male with a history of a stroke and expressive aphasia, recently had craniotomy for a spontaneous subdural hematoma at [facility] with Dr. Frey, was seen here in the emergency department 6 days ago for some painful swelling in his craniotomy incision and was placed on cephalexin which she has been on since then. Today staff noticed a difference in the wound and some drainage on his bed sheets/pillow and sent him in out of concern for dehiscence. The patient indicates that it is sore in that area, history is very limited due to his expressive aphasia. He can answer yes and no appropriately and denies having a headache, just pain in the area where the drainage is coming from. [facility] Medical History (Updated 06/14/23 @ 16:[address] Hammad Baker MD) Hyperlipidemia Hypertension Stroke/cerebrovascular accident Home Medications cholecalciferol (vitamin D3) 1,250 mcg (50,000 unit) capsule 1,250 mcg PO QWEEK #4 caps 08/01/20 [Rx Last Taken Unknown] baclofen 10 mg tablet 10 mg PO DAILY 01/13/21 [History Last Taken Unknown] famotidine 20 mg tablet 20 mg PO DAILY 01/13/21 [History Last Taken Unknown] fluoxetine 20 mg tablet 20 mg PO DAILY 01/13/21 [History Last Taken Unknown] cephalexin 500 mg capsule 500 mg PO Q6 #40 CAPSULES 06/08/23 [Rx Last Taken Unknown] atorvastatin 80 mg tablet 80 mg PO DAILY 06/14/23 [History Last Taken Unknown] metoprolol succinate 25 mg tablet,extended release 24 hr 12.5 mg PO DAILY 06/14/23 [History Last Taken Unknown] oxycodone 5 mg tablet 5 mg PO DAILY 06/14/23 [History Last Taken Unknown] Allergy/AdvReac Type Severity Reaction Status Date / Time No Known Allergies Allergy Verified 06/08/23 09:54 Surgical History (Updated 06/08/23 @ 10:[address] Jaylen Han DO) History of craniotomy History of herniorrhaphy Hx of tracheostomy Social History Smoking Status: Former smoker Electronic Cigarette Use: not used second hand exposure: Yes alcohol intake: never substance use type: does not use ROS ROS ED Review of Systems ROS Unobtainable: other Details: Limited due to expressive aphasia Constitutional Constitutional ED: Denies fever(s) Integumentary Reports as per HPI Neurologic Neurologic: Reports other Details: Chronic right sided weakness EXAM Physical Exam Const Vital Signs: 06/14/23 12:00 06/14/23 13:59 06/14/23 15:00 Temperature 98.4 F Temperature Source Axillary Pulse Rate 70 85 57 L Respiratory Rate 18 16 14 Blood Pressure 139/87 H 140/84 H 132/87 H Blood Pressure Mean 104 102 102 Pulse Ox 96 98 98 Oxygen Delivery Method Room Air Room Air Room Air Positive well nourished and well developed General Appearance ED: well developed and NAD HEENT HEENT Narrative: Craniotomy incision left posterior is well-healed, there is a point in the center of it posteriorly where there are 2 small pustular-looking lesions subcentimeter very close to each other, there is some seepage here but I am not able to express anything significant, it is mildly tender. There is NO wound dehiscence. Minor erythema is limited only to the base of these 2 lesions and there is no surrounding cellulitis. Eyes PERRL and EOMs intact bilaterally Neck no lymphadenopathy and supple Neck Narrative: FROM Resp normal respiratory effort Neuro Neuro Narrative: Weak on the right side. Answers yes/no questions appropriately. Expressive aphasia. MDM MDM MDM Narrative Medical decision making narrative: I called to discuss this patient's clinical findings with neurosurgery, I was able to discuss with Raymundo nurse practitioner who knows the patient well from prior encounters. He agrees with my sterilely placing the needle into the pustular appearing lesion in order to help drain the contents. I discussed this with the patient and his they were in agreement and consented verbally. After this was done, it became evident that the left temporal scalp is boggy, and manipulating it causes the transparent yellow fluid to flow more forcefully from where I inserted the needle posteriorly. I massaged as much of the fluid out of the hole that I could, although I only aspirated 2.5 cc with the needle, I probably expressed another 30 cc or so out of his scalp. It feels like the fluid is between the scalp and his plate. I discussed again with Raymundo nurse practitioner from neurosurgery and we reviewed his CT images together from 06/08/2023 that were done here with contrast, and indeed he has what appears to be a postoperative seroma overlying the left craniotomy site causing bulging of the left scalp. Raymundo said that he had examined the patient around that time and it was quite firm, now it is boggy like an empty sac of water, all consistent with this having had been a seroma. I had nursing dress and wrapped this with Kerlix so as to apply gentle pressure to the area and hopefully keep it from refilling, neurosurgery will contact the [facility] regarding outpatient follow-up after the weekend since today is Saturday. I sent the fluid for culture and we will continue the cephalexin that he is currently on for now, the fluid does not grossly appear infected as it is transparent yellow. Management Discussion w/another healthcare provider: Cuff Folder ([facility]) Procedures Other Procedures Procedure(s): Seroma drainage, see notes above. Tolerated well without complications. Discharge Plan Triage Chief Complaint: Wound Check ED Provider: Hammad Baker Dx/Rx/DC Orders Clinical Impression: Postoperative seroma of skin after non-dermatologic procedure Instructions: ED Seroma, Postsurgical Prescriptions: No Action cholecalciferol (vitamin D3) 1,250 mcg (50,000 unit) capsule 1,250 mcg PO QWEEK Qty: 4 1RF famotidine 20 mg tablet 20 mg PO DAILY baclofen 10 mg tablet 10 mg PO DAILY fluoxetine 20 mg tablet 20 mg PO DAILY cephalexin [cephalexin] 500 mg capsule 500 mg PO Q6 Qty: 40 0RF atorvastatin 80 mg tablet 80 mg PO DAILY metoprolol succinate 25 mg tablet extended release 24 hr 12.5 mg PO DAILY oxycodone 5 mg tablet 5 mg PO DAILY Primary Care Provider: Pete Blue Referrals: Dr. Shante [Other] ([facility] to contact concerning follow up appt after the weekend; continue antibiotic for now, change dressing as needed -- there will likely be more transparent yellow fluid draining from the pinhole-sized opening posteriorly (exit for seroma); there is NO dehiscence of the surgical incision) Activity Restrictions/Additional Instructions: [facility] to contact concerning follow up appt after the weekend; continue antibiotic for now, change dressing as needed -- there will likely be more transparent yellow fluid draining from the pinhole-sized opening posteriorly (exit for seroma); there is NO dehiscence of the surgical incision Disposition Disposition: Longterm Facility
[2023-06-14 13:59] VITALS: BP 140/84; PULSE 85; RESP 16; O2SAT 98
[2023-06-14 15:00] VITALS: BP 132/87; PULSE 57; RESP 14; O2SAT 98
[2023-06-14 16:45] VITALS: BP 144/75; PULSE 72; RESP 17; TEMP 36.8; O2SAT 97
== END 2023-06-14 16:45 | disposition skilled nursing facility (03) ==
PROVIDERS: Emergency Provider Emergency Medicine; PCP Family Medicine; Visit Provider Emergency Medicine
DX: Z98.890 Other specified postprocedural states (principal); Z93.0 Tracheostomy status; Z87.891 Personal history of nicotine dependence; Z86.73 Personal history of transient ischemic attack (TIA), and cerebral infarction without residual deficits; E78.5 Hyperlipidemia, unspecified; I10 Essential (primary) hypertension; Z79.899 Other long term (current) drug therapy
CPT/HCPCS: 87070; 87077; 87186; 87205; 99282

== ENCOUNTER 2023-08-12 11:44 | Emergency (ER) | payer MEDICAID, SELFPAY ==
[2023-08-12 11:45] VITALS: BP 157/99; PULSE 85; RESP 16; TEMP 36.9; O2SAT 95; BMI 35.9
[2023-08-12 13:45] VITALS: BP 143/107; PULSE 88; RESP 18; O2SAT 98
[2023-08-12 14:44] LABS: Absolute Lymphocyte Count 1.49 X10^3/uL (0.83-4.51); Absolute Neutrophil Count 2.9 X10^3/uL (2.0-7.7); Basophil# 0.03 X10^3/uL; Basophil% 0.6 % (0-1); Eosinophil# 0.18 X10^3/uL; Eosinophils% 3.5 % (0-5); Hematocrit 39.2 % (40-54); Hemoglobin 11.4 g/dL (13.0-16.5); Lymphocyte # 1.49 X10^3/ul (0.83-4.51); Lymphocyte % 28.6 % (19-41); Mean Corp Hgb Conc 29.1 g/dL (32-36); Mean Corpuscular Hgb 24.2 pg (27.0-32.0); Mean Corpuscular Volume 83.1 fL (80-94); Mean Platelet Vol. 9.7 fl (6.2-12.0); Monocyte# 0.57 X10^3/uL; Monocyte% 10.9 % (0-10); NRBC Flagged by Analyzer 0 % (0-5); Neutrophil # 2.92 X10^3/uL (2.7-7.7); Platelet Count 250 K/mm3 (150-450); RBC Distribution Width CV 15.2 % (11.6-14.6); RBC Distribution Width SD 46.5 fl (35.1-43.9); Red Blood Count 4.72 M/mm3 (4.6-6.2); White Blood Count 5.2 K/mm3 (4.4-11.0)
[2023-08-12 15:00] VITALS: BP 138/56; PULSE 78; RESP 18; O2SAT 98
[2023-08-12 15:00] LABS: Anion Gap 5 (5-15); BUN 11 mg/dL (7-18); BUN/Creat Ratio 10.8 RATIO (10-20); Calcium,Total 8.7 mg/dL (8.5-10.1); Chloride 106 mmol/L (98-107); Creatinine, Serum 1.02 mg/dL (0.70-1.30); EST Glomerular Filtration Rate 83 mL/min (>60); Est Glom Filt Rate - Afr Amer 101 mL/min (>60); Estimated Creatinine Clearance 112.93 ml/min; Glucose 84 mg/dL (74-106); Potassium 4.4 mmol/L (3.5-5.1); Sodium Level 135 mmol/L (136-145)
--- NOTE | 2023-08-12 15:00 | EDS_ITS ---
HPI History of Present Illness Chief Complaint: Wound Informant: patient, spouse/S.O. and EMS Narrative Narrative: Patient sent from shelter because of open wound left posterior scalp. This patient had subdural hematoma with craniectomy and evacuation several months ago at [facility] with Dr. Frey. He was seen here in May for a seroma that we drained, he followed up after that with neurosurgery and the wound closed up according to the significant other and was doing really well. Recently agree open but the significant other and the patient have no idea how long it has been, no more than 4 days at the most they think. Neither one of them know why the shelter sent him to the ER today versus couple days ago if that is the case. He has been complaining of some headache, but no fevers or other symptoms, the significant other states he is at his baseline neurologically with a significant expressive aphasia and right-sided weakness. [facility] Medical History Hyperlipidemia Hypertension Stroke/cerebrovascular accident Home Medications ?Medication ?Instructions ?Recorded ?Last Taken ?Type cholecalciferol (vitamin D3) 1,250 1,250 mcg PO QWEEK #4 caps 08/01/20 Unknown Rx mcg (50,000 unit) capsule baclofen 10 mg tablet 10 mg PO DAILY 01/13/21 Unknown History famotidine 20 mg tablet 20 mg PO DAILY 01/13/21 Unknown History fluoxetine 20 mg tablet 20 mg PO DAILY 01/13/21 Unknown History cephalexin 500 mg capsule 500 mg PO Q6 #40 CAPSULES 06/08/23 Unknown Rx atorvastatin 80 mg tablet 80 mg PO DAILY 06/14/23 Unknown History metoprolol succinate 25 mg 12.5 mg PO DAILY 06/14/23 Unknown History tablet,extended release 24 hr oxycodone 5 mg tablet 5 mg PO DAILY 06/14/23 Unknown History Allergy/AdvReac Type Severity Reaction Status Date / Time No Known Allergies Allergy Verified 08/12/23 11:45 Surgical History Hx of tracheostomy History of herniorrhaphy History of craniotomy Social History Smoking Status: Former smoker Electronic Cigarette Use: not used second hand exposure: Yes alcohol intake: never substance use type: does not use ROS ROS ED Review of Systems ROS Unobtainable: other Details: Expressive aphasia, unchanged from baseline Constitutional Constitutional ED: Denies chills or fever(s) Integumentary Reports wounds Neurologic Neurologic: Reports headache(s) and weakness EXAM Physical Exam Const Vital Signs: 08/12/23 11:45 08/12/23 13:45 Temperature 98.5 F Temperature Source Oral Pulse Rate 85 88 Respiratory Rate 16 18 Blood Pressure 157/99 H 143/107 H Blood Pressure Mean 118 119 Pulse Ox 95 98 Oxygen Delivery Method Room Air Positive well nourished and well developed General Appearance ED: well developed and NAD Neuro Neuro Narrative: Expressive aphasia and weakness right side. Skin Skin Narrative: Dehisced surgical scar posterior parietal occipital scalp, there are 2 fingertip sized holes right neck suture only within the scar tissue of the surgical incision. There is a small amount of fluid at the base of the caudal most 1, but with massaging the side of his scalp where the seroma was last time he was seen, by myself, there is no fluid expressible. I can see white smooth surface within the wound but not part of the skin. No bleeding. Minimal tenderness in the wounds. No surrounding erythema to suggest infection. MDM MDM MDM Narrative Medical decision making narrative: I sent pictures to the nurse in the neurosurgery office who in turn was in contact with Dr. Frey, they agree that they are unable to rule out the possibility of exposed hardware being seen through these 2 small wounds. For this reason they recommend emergent transfer ER-ER to [facility] so they can further evaluate. I am making the patient n.p.o. his vital signs are stable he is doing well clinically, is not septic. I did run some labs at the request they are normal. Those were reviewed. They requested to hold off on antibiotics until they see the patient which is reasonable. I did review old culture from May of the seroma that we drained, it showed very rare MRSA, of note the patient was on cephalexin during that, and his wounds closed and healed without complication in the short-term. Discussed with transfer center and accepted by Dr. DOS SANTOS to ED History & Record Review Additional record(s) reviewed:: Other (Seroma fluid culture 05/2023) Lab Data Attestation: I reviewed the patient's lab results. Labs: Laboratory Results - last 24 hr 08/12/23 14:35 WBC 5.2 RBC 4.72 Hgb 11.4 L Hct 39.2 L MCV 83.1 MCH 24.2 L MCHC 29.1 L RDW Std Deviation 46.5 H RDW Coeff of Scott 15.2 H Plt Count 250 MPV 9.7 Immature Gran % (Auto) 0.400 Neut % (Auto) 56.0 Lymph % (Auto) 28.6 [place] % (Auto) 10.9 H Eos % (Auto) 3.5 Baso % (Auto) 0.6 Absolute Neuts (auto) 2.9 Absolute Lymphs (auto) 1.49 Nucleated RBC % 0 Sodium 135 L Potassium 4.4 Chloride 106 Carbon Dioxide 24.0 Anion Gap 5 BUN 11 Creatinine 1.02 Estim Creat Clear Calc 112.93 Est GFR (MDRD) Af Amer 101 Est GFR (MDRD) Non-Af 83 BUN/Creatinine Ratio 10.8 Glucose 84 Calcium 8.7 Discharge Plan Triage Chief Complaint: Wound ED Provider: Hammad Baker Dx/Rx/DC Orders Clinical Impression: Dehiscence of operative wound Prescriptions: No Action cholecalciferol (vitamin D3) 1,250 mcg (50,000 unit) capsule 1,250 mcg PO QWEEK Qty: 4 1RF famotidine 20 mg tablet 20 mg PO DAILY baclofen 10 mg tablet 10 mg PO DAILY fluoxetine 20 mg tablet 20 mg PO DAILY cephalexin [cephalexin] 500 mg capsule 500 mg PO Q6 Qty: 40 0RF atorvastatin 80 mg tablet 80 mg PO DAILY metoprolol succinate 25 mg tablet extended release 24 hr 12.5 mg PO DAILY oxycodone 5 mg tablet 5 mg PO DAILY Primary Care Provider: Pete Blue Referrals: Pete Blue MD [Primary Care Provider] - Print Language: Swazi Disposition Disposition: Acute Care Hospital
[2023-08-12] MEDS: Acetaminophen 500 MG Tablet 1000 MG PO (15:59)
== END 2023-08-12 16:12 | disposition short-term general hospital (02) ==
PROVIDERS: Emergency Provider Emergency Medicine; PCP Family Medicine; Visit Provider Emergency Medicine
DX: T81.31XA Disruption of external operation (surgical) wound, not elsewhere classified, initial encounter (principal); R47.01 Aphasia; Z87.891 Personal history of nicotine dependence; R51.9 Headache, unspecified; S01.00XA Unspecified open wound of scalp, initial encounter; E78.5 Hyperlipidemia, unspecified; I10 Essential (primary) hypertension; Z86.73 Personal history of transient ischemic attack (TIA), and cerebral infarction without residual deficits
CPT/HCPCS: 80048; 85025; 99283; A4216

== ENCOUNTER 2023-09-18 20:52 | Emergency (ER) | payer MEDICAID, SELFPAY ==
[2023-09-18 20:54] VITALS: BP 135/78; PULSE 125; RESP 18; TEMP 37.1; O2SAT 94
--- NOTE | 2023-09-18 21:46 | CT_ITS ---
INDICATION: left head swelling/pain, post crani EXAMINATION: CT BRAIN - CT Head or Brain W/O Contrast Injection TECHNIQUE: Multiple axial images were obtained of the head without intravenous contrast. A radiation dose optimization technique was used for this scan. IV Contrast dosage and agent: None. COMPARISON: June 08, 2023 FINDINGS: BRAIN PARENCHYMA: Left craniotomy surgical change with absence of prior cranial prosthesis. Left extracranial extension of parenchyma with diffuse encephalomalacia. Secondary Ex vacuo dilatation of left lateral ventricle with 6 mm leftward midline shift. No intracranial hemorrhage. No new giraldo-white matter differentiation loss. Mild scattered paranasal sinus mucoperiosteal thickening. Mastoid air cells are clear. ORBITS: Both globes, extraocular muscles, optic nerves and retrobulbar fat appear unremarkable. ASPECTS Score for Acute Strokes: 10 CT/Brain/Head without Contrast IMPRESSION: Extensive left frontoparietal MCA territory encephalomalacia with extracranial extension through craniectomy. Ex vacuo leftward midline shift and left lateral ventricle dilatation. No CT evidence of acute intracranial hemorrhage. Electronically Signed: Gus Bergman MD at 22:37 EDT ,
[2023-09-18] MEDS: Ondansetron 4 MG/2 ML Vial IV (21:52)
[2023-09-18 21:53] VITALS: BP 141/71; PULSE 120; RESP 20; O2SAT 98
[2023-09-18] MEDS: Morphine 4 MG/ML Syringe IV (21:53)
[2023-09-18] MEDS: 0.9% Normal Saline (1000mL) 1,000 ML 999 ML IV (21:53)
[2023-09-18 22:01] VITALS: BP 126/72; PULSE 124; RESP 19; TEMP 36.4; O2SAT 96
[2023-09-18 22:03] LABS: Absolute Lymphocyte Count 0.63 X10^3/uL (0.83-4.51); Absolute Neutrophil Count 4.8 X10^3/uL (2.0-7.7); Basophil# 0.03 X10^3/uL; Basophil% 0.5 % (0-1); Eosinophil# 0.06 X10^3/uL; Hematocrit 28.7 % (40-54); Hemoglobin 8.5 g/dL (13.0-16.5); Lymphocyte # 0.63 X10^3/ul (0.83-4.51); Lymphocyte % 10.5 % (19-41); Mean Corp Hgb Conc 29.6 g/dL (32-36); Mean Corpuscular Hgb 23.1 pg (27.0-32.0); Mean Platelet Vol. 9.9 fl (6.2-12.0); Monocyte# 0.46 X10^3/uL; Monocyte% 7.7 % (0-10); NRBC Flagged by Analyzer 0 % (0-5); Neutrophil # 4.79 X10^3/uL (2.7-7.7); Platelet Count 207 K/mm3 (150-450); RBC Distribution Width CV 15.8 % (11.6-14.6); Red Blood Count 3.68 M/mm3 (4.6-6.2)
[2023-09-18 22:24] LABS: Anion Gap 8 (5-15); BUN 11 mg/dL (7-18); BUN/Creat Ratio 9.8 RATIO (10-20); Calcium,Total 8.3 mg/dL (8.5-10.1); Chloride 108 mmol/L (98-107); Creatinine, Serum 1.12 mg/dL (0.70-1.30); EST Glomerular Filtration Rate 75 mL/min (>60); Est Glom Filt Rate - Afr Amer 90 mL/min (>60); Glucose 113 mg/dL (74-106); Potassium 4.1 mmol/L (3.5-5.1); Sodium Level 138 mmol/L (136-145)
[2023-09-18 22:27] LABS: Lactic Acid 1.7 mmol/L (0.4-1.9)
[2023-09-18 23:00] VITALS: BP 117/75; PULSE 122; RESP 19; TEMP 36.4; O2SAT 98
--- NOTE | 2023-09-18 23:31 | EDS_ITS ---
HPI History of Present Illness Chief Complaint: Other, Pain/Inj Informant: patient, spouse/S.O., EMS and SNF Narrative Narrative: 48-year-old male with a history of a stroke and expressive aphasia, had left craniectomy for a spontaneous subdural hematoma at [facility] with Dr. Frey, which was complicated by MRSA infection and wound dehiscence with exposed hardware, and he ended up needing to have it removed about a month ago. Since then he has been wearing a helmet and has been [facility]. Today, he started having some higher blood pressures, details of this unknown, as well as head pain which is not usual for him. That and the significant other states that the left side of his head where his hardware was is now swollen which was not the case when she last saw him a few days ago. Since the last procedure he had, she states his head has been more normal shaped without significant swelling on the left side, unlike what he has now. In addition to this, she notes that he is having some redness on his chest and upper arms that is new. [facility] Medical History Hyperlipidemia Hypertension Stroke/cerebrovascular accident Home Medications ?Medication ?Instructions ?Recorded ?Last Taken ?Type cholecalciferol (vitamin D3) 1,250 1,250 mcg PO QWEEK #4 caps 08/01/20 Unknown Rx mcg (50,000 unit) capsule baclofen 10 mg tablet 10 mg PO DAILY 01/13/21 Unknown History famotidine 20 mg tablet 20 mg PO DAILY 01/13/21 Unknown History fluoxetine 20 mg tablet 20 mg PO DAILY 01/13/21 Unknown History cephalexin 500 mg capsule 500 mg PO Q6 #40 CAPSULES 06/08/23 Unknown Rx atorvastatin 80 mg tablet 80 mg PO DAILY 06/14/23 Unknown History metoprolol succinate 25 mg 12.5 mg PO DAILY 06/14/23 Unknown History tablet,extended release 24 hr oxycodone 5 mg tablet 5 mg PO DAILY 06/14/23 Unknown History Allergy/AdvReac Type Severity Reaction Status Date / Time No Known Allergies Allergy Verified 09/18/23 21:19 Surgical History Hx of tracheostomy History of herniorrhaphy History of craniotomy Social History household members: other housing[facility] Smoking Status: Former smoker Electronic Cigarette Use: not used second hand exposure: Yes alcohol intake: never substance use type: does not use ROS ROS ED Review of Systems ROS Unobtainable: other Details: Limited due to aphasia and difficulty answering questions, which is his neurologic baseline since his stroke Gastrointestinal Gastrointestinal: Denies nausea or vomiting Musculoskeletal Musculoskeletal: Denies back pain or neck pain Integumentary Reports rash Neurologic Neurologic: Reports headache(s) EXAM Physical Exam Const Vital Signs: 09/18/23 20:54 09/18/23 21:04 09/18/23 21:53 Temperature 98.7 F Temperature Source Temporal Pulse Rate 125 H 120 H Respiratory Rate 18 20 H Respiratory Effort Normal Respiratory Pattern Normal Blood Pressure 135/78 H 141/71 H Blood Pressure Mean 97 94 Pulse Ox 94 98 Oxygen Delivery Method Room Air Room Air 09/18/23 22:01 09/18/23 23:00 Temperature 97.6 F L 97.6 F L Temperature Source Temporal Temporal Pulse Rate 124 H 122 H Respiratory Rate 19 H 19 H Respiratory Effort Respiratory Pattern Blood Pressure 126/72 H 117/75 Blood Pressure Mean 90 89 Pulse Ox 96 98 Oxygen Delivery Method Room Air Room Air Positive well nourished and well developed General Appearance ED: well developed and NAD HEENT HEENT Narrative: Keenly alert. Surgical incision left posterior parietal occipital scalp is well-healed and benign without dehiscence or erythema, there is no other wound or erythema in the scalp. The left parietal scalp in its entirety, frontal- occipital, is prominent and swelled out compared with the contralateral side. It feels boggy, fluid-filled, and just barely palpating/pushing on this the patient states ouch as if he is in pain. The significant other states that is not usually the case with this. Eyes PERRL and EOMs intact bilaterally Eyes Narrative: Small subconjunctival hemorrhage left eye, just inferotemporal of the cornea at approximately 4:30 position. Chest Wall palpation of chest normal Chest Narrative: Mild blanching erythema across the chest and left upper arm. Not indurated. No petechia. Not raised. Resp normal respiratory effort and clear to auscultation bilaterally Cardio regular rate, regular rhythm and no murmurs Rate: other Other Details: Mild tachycardia GI normal to inspection, nondistended, normoactive bowel sounds, non-tender and non-distended Extremity General Extremety ED: Negative for edema or tenderness General Extremity: Negative for edema Neuro Neuro Narrative: Keenly alert, answers yes and no to questions. Aphasic. Sensorium / Orientation: orientation impaired Skin no wounds and skin turgor normal MDM MDM MDM Narrative Medical decision making narrative: Obtain labs and a CT of the head, I reviewed the images and the result which I agree with, there appears to potentially be some heterogeneity within the fluid in the left side of his head. No hemorrhage according to radiology. Labs are noted. His hemoglobin is 8.5. I was able to obtain the fact that on 09/09 his hemoglobin was 8.8 at [facility], as told to me through the transfer center (our last hemoglobin was 11.4 but that was just over a month ago). Considering the possibility of sepsis given his tachycardia and recent procedure with swelling now, I obtained a lactic acid. It is normal, arguing against sepsis. Yuri toro does not appear to be septic but I did give him a liter of fluid. His heart rate came down to 118, not a large decrease. He was also given morphine and Zofran, he states this really helped with his pain. Unclear what is causing this change right now, it could be intracranial pressure increase for reasons that are unclear to me at this time. I think he needs a neurosurgical consultation so I called the [facility] transfer center to discuss. They connected me with Dr. Villareal with neurosurgery. I discussed the case with him, he agrees the patient should be transferred for further evaluation soon as possible. For this reason the transfer center gave me Dr. Bonds as the accepting EM physician. Patient is stable right now and we are awaiting transport by EMS for an ED-ED transfer. History & Record Review Discussion w/independent historian: EMS personnel, Patient and Significant other Additional record(s) reviewed:: Prior outpatient record (see above) and Prior ED visit Lab Data Attestation: I reviewed the patient's lab results. Labs: Laboratory Results - last 24 hr 09/18/23 21:52 WBC 6.0 RBC 3.68 L Hgb 8.5 L Hct 28.7 L MCV 78.0 L MCH 23.1 L MCHC 29.6 L RDW Std Deviation 45.0 H RDW Coeff of Scott 15.8 H Plt Count 207 MPV 9.9 Immature Gran % (Auto) 0.300 Neut % (Auto) 80.0 H Lymph % (Auto) 10.5 L [place] % (Auto) 7.7 Eos % (Auto) 1.0 Baso % (Auto) 0.5 Absolute Neuts (auto) 4.8 Absolute Lymphs (auto) 0.63 L Nucleated RBC % 0 Sodium 138 Potassium 4.1 Chloride 108 H Carbon Dioxide 22.0 Anion Gap 8 BUN 11 Creatinine 1.12 Est GFR (MDRD) Af Amer 90 Est GFR (MDRD) Non-Af 75 BUN/Creatinine Ratio 9.8 L Glucose 113 H Lactic Acid 1.7 Calcium 8.3 L Radiography Diagnostic Testing: Clinical Impression(s) from Imaging Studies Brain CT 09/18/23 21:46 IMPRESSION: Extensive left frontoparietal MCA territory encephalomalacia with extracranial extension through craniectomy. Ex vacuo leftward midline shift and left lateral ventricle dilatation. No CT evidence of acute intracranial hemorrhage. Electronically Signed: Gus Bergman MD at 22:37 EDT Reading Location ID and State: [facility] / [place] Tel , Service support , Management Discussion w/another healthcare provider: Grazing [employer]ide (ROBERTO Villareal) Discharge Plan Triage Chief Complaint: Other, Pain/Inj ED Provider: Hammad Baker Dx/Rx/DC Orders Clinical Impression: Intracranial swelling, Status post craniectomy, Acute headache Prescriptions: No Action cholecalciferol (vitamin D3) 1,250 mcg (50,000 unit) capsule 1,250 mcg PO QWEEK Qty: 4 1RF famotidine 20 mg tablet 20 mg PO DAILY baclofen 10 mg tablet 10 mg PO DAILY fluoxetine 20 mg tablet 20 mg PO DAILY cephalexin [cephalexin] 500 mg capsule 500 mg PO Q6 Qty: 40 0RF atorvastatin 80 mg tablet 80 mg PO DAILY metoprolol succinate 25 mg tablet extended release 24 hr 12.5 mg PO DAILY oxycodone 5 mg tablet 5 mg PO DAILY Primary Care Provider: Pete Blue Referrals: Pete Blue MD [Primary Care Provider] - Print Language: Beninese Disposition Disposition: Acute Care Hospital Discharge Location: [facility]
[2023-09-19] VITALS (9 sets, daily range): BP systolic 113–151; BP diastolic 63–80; PULSE 90–113; RESP 14–16; TEMP 36.6; O2SAT 94–96
[2023-09-19] MEDS: Morphine 4 MG/ML Syringe IV (07:19)
[2023-09-19] MEDS: Ondansetron 4 MG/2 ML Vial IV (07:19)
== END 2023-09-19 07:29 | disposition short-term general hospital (02) ==
PROVIDERS: Emergency Provider Emergency Medicine; PCP Family Medicine; Visit Provider Emergency Medicine
DX: R51.9 Headache, unspecified (principal); I10 Essential (primary) hypertension; Z87.891 Personal history of nicotine dependence; E78.5 Hyperlipidemia, unspecified; Z86.73 Personal history of transient ischemic attack (TIA), and cerebral infarction without residual deficits; R60.9 Edema, unspecified; Z86.14 Personal history of Methicillin resistant Staphylococcus aureus infection; Z98.890 Other specified postprocedural states
CPT/HCPCS: 70450; 80048; 83605; 85025; 87040; 87077; 87186; 99283; J7030; A4216; J2405

== ENCOUNTER 2023-12-11 15:56 | Emergency (ER) | payer MEDICAID, SELFPAY ==
[2023-12-11] VITALS (9 sets, daily range): BP systolic 146–162; BP diastolic 84–95; PULSE 96–117; RESP 15–27; TEMP 36.4–38.2; O2SAT 94–97; BMI 36.2
--- NOTE | 2023-12-11 16:01 | EDS_ITS ---
HPI History of Present Illness Chief Complaint: Edema PFSH PFS Medical History (Updated 12/11/23 @ 16:09 by Genoveva Chun) Weakness Mental disorder Abnormal gait GERD (gastroesophageal reflux disease) Xerosis cutis Migraine Neuropathy Muscle weakness (generalized) Hyperlipidemia Hypertension Stroke/cerebrovascular accident Home Medications ?Medication ?Instructions ?Recorded ?Last Taken ?Type cholecalciferol (vitamin D3) 1,250 1,250 mcg PO QWEEK #4 caps 08/01/20 Unknown Rx mcg (50,000 unit) capsule cephalexin 500 mg capsule 500 mg PO Q6 #40 CAPSULES 06/08/23 Unknown Rx oxycodone 5 mg tablet 5 mg PO Q6H PRN pain 06/14/23 Unknown History enoxaparin 40 mg/0.4 mL 40 mg subcut DAILY 09/19/23 Unknown History subcutaneous syringe multivitamin (Daily Multi-Vitamin 1 tab PO DAILY 09/19/23 Unknown History tablet) ondansetron HCl 4 mg tablet 4 mg PO Q6H PRN nausea and vomiting 09/19/23 Unknown History polyethylene glycol 3350 17 17 g PO QHS 09/19/23 Unknown History gram/dose oral powder (Miralax) sennosides 8.6 mg-docusate sodium 1 tab-cap PO DAILY PRN constipation 09/19/23 Unknown History 50 mg tablet (Laxative Stool Softener With Senna) vancomycin HCl 100 mg/mL in 1.25 g IV Q12H 09/19/23 Unknown History sterile water intravenous solution zinc sulfate 220 mg capsule 220 mg PO DAILY 09/19/23 Unknown History sertraline 25 mg tablet 25 mg PO DAILY 12/11/23 Unknown History sulfamethoxazole 800 1 tab PO BID 12/11/23 Unknown History mg-trimethoprim 160 mg tablet Allergy/AdvReac Type Severity Reaction Status Date / Time No Known Allergies Allergy Verified 09/18/23 21:19 Surgical History (Updated 09/27/23 @ 00:01 by Rell Gomez) Hx of tracheostomy History of herniorrhaphy History of craniotomy Social History household members: other housing: half-way Smoking Status: Former smoker Electronic Cigarette Use: not used second hand exposure: Yes alcohol intake: never substance use type: does not use EXAM Physical Exam Const Vital Signs: 12/11/23 16:02 12/11/23 16:04 12/11/23 16:10 Temperature 98.9 F 98.9 F Temperature Source Oral Oral Pulse Rate 96 98 Respiratory Rate 17 15 Respiratory Effort Normal Non-Labored Respiratory Pattern Normal Blood Pressure 157/94 H 157/94 H Blood Pressure Mean 115 115 Pulse Ox 95 97 Oxygen Delivery Method Room Air Room Air 12/11/23 17:04 12/11/23 18:00 12/11/23 19:11 Temperature 100.7 F H 100.5 F H 97.5 F L Temperature Source Oral Oral Temporal Pulse Rate 100 100 102 H Respiratory Rate 25 H 27 H 22 H Respiratory Effort Respiratory Pattern Blood Pressure 160/95 H 146/94 H 162/92 H Blood Pressure Mean 116 111 115 Pulse Ox 96 96 94 Oxygen Delivery Method Room Air Room Air Room Air 12/11/23 20:00 Temperature 97.8 F Temperature Source Temporal Pulse Rate 61 Respiratory Rate 18 Respiratory Effort Respiratory Pattern Blood Pressure 104/33 L Blood Pressure Mean 56 Pulse Ox 100 Oxygen Delivery Method Room Air [facility] MDM MDM Narrative Medical decision making narrative: HISTORY OF PRESENT ILLNESS: 48-year-old male hx of CVA, hyperlipidemia, hypertension here edema. With 1 day of swelling over the left scalp over surgical site. No fevers, no drainage reported. No vomiting. No weakness or fatigue reported. No new weakness. No falls or other trauma reported. REVIEW OF SYSTEMS: Pertinent positives: Pain/swelling over left craniotomy site Pertinent negatives: Fever, vomiting, fatigue PHYSICAL EXAM: Nursing triage notes reviewed, Vital signs reviewed Constitutional: please see mdm HENT: MMM, left prior craniotomy site is clean dry intact with no obvious dehiscence, noted sutures in place. No drainage. No fluctuance, no induration, no obvious edema. Eyes: Pupils equal round and reactive to light, Extraocular muscles intact Neck: No stridor, no JVD, full neck ROM Lungs: Clear to auscultation, No wheezing or rales. No increased work of breathing, no conversational dyspnea, no accessory muscle use, no nasal flaring. No respiratory distress noted Heart: Regular rate and rhythm, No murmurs, No rubs and No gallops, 2+ distal pulses (radial, femoral, posterior tibial) in all extremities Abdomen: Soft, there is no tenderness, rigidity, rebound or guarding, no obvious peritoneal signs, no palpable pulsatile abdominal masses, no auscultated abdominal bruit : No CVAT Extremities: No edema Neuro: No focal neurological deficits, cranial nerves II through XII intact, 5/5 strength in all extremities. Intact sensation to light touch in all extremities, 2+ reflexes bilateral patella tendons. Normal gait. No ataxia. Skin: Surgical site clean dry intact, no fluctuance induration crepitus purulence or significant tenderness to palpation. No obvious signs of swelling noted MEDICAL DECISION MAKING: Chief Complaint: facial swelling External records reviewed: Reviewed prior ED notes. History of spontaneous epidural hematoma. His surgeon at [facility] in the past has been Dr. Frey. History of wound dehiscence swelling and infection of prior craniotomy site. Reviewed Clinisync More recently the patient underwent cranioplasty was admitted from 11/19 to 11/26/2023 and other procedures at [facility] by Dr. Dior Talbert MD PhD Factors affecting care: CVA, subdural hematoma, aphasia, right-sided weakness Social determinants of health: none History obtained from others: none Consults: Called over to [facility] plastic reconstructive surgery Dr. Talbert. Discussed with plastic surgery resident to communicate with Dr. Talbert. Reviewed the patient's case. I did send images to the plastic surgery residents as well. They recommended discharge 1 week of Keflex given fever reported. They do not recommend transfer or surgery at this time. They are able to schedule a follow-up appointment on Saturday (in 5 days). MDM Narrative: The patient was hemodynamically stable, afebrile and nontoxic-appearing. Exam without obvious signs of infection. I considered the following differential diagnosis: Postop infection, postop seroma, postop abscess I obtained a broad lab and imaging workup to further elucidate etiology of the patient's complaints ALL IMAGES (IF OBTAINED) HAVE BEEN PERSONALLY REVIEWED AND INTERPRETED BY MYSELF. CBC had no evidence of systemic inflammation, there was improved anemia BMP had no signs of metabolic acidosis or endorgan hypoperfusion Lactate is wnl indicating no end-organ hypoperfusion and/or hypoxia. CT scan head no evidence of bleed abscess or other signs of infection No clear infectious etiology could be ascertained. On repeat vital sign assessment the patient did have a temperature 100.5. He is given Tylenol for this. COVID test was ordered to better explain the patient's fever. COVID 19, flu and RSV test were negative no clear source of the patient's mild fever. I do not suspect his surgery from 2 weeks ago was causing infection. Out of an abundance of caution we will discharge 1 week of Keflex as per plastic surgery recommendations The patient and/or family, caregivers express understanding. The patient and/or family, caregivers agrees with the plan. Shared decision making: I will have a discussion with the patient and or visitors regarding risk/benefits of further testing or admission. They will be made aware of of the risk/benefits inherent in this decision they will be given the opportunity to voice understanding. Total critical care time today provided was at least 0 minutes. This excludes separately billable procedures. Critical care time (if documented) is secondary to the patient having high probability of clinically significant/life threatening deterioration in the patient's condition which required my urgent intervention. Impression: 1. Postop pain 2. History of cranioplasty 3. Fever Dispo: Discharge home This note was generated with Shook dictation software. It may contain incorrect words, spelling, and punctuation that were not noted in review of the chart prior to signing. Lab Data Labs: Laboratory Results - last 24 hr 12/11/23 16:30 WBC 7.2 RBC 4.16 L Hgb 9.2 L Hct 31.7 L MCV 76.2 L MCH 22.1 L MCHC 29.0 L RDW Std Deviation 50.2 H RDW Coeff of Scott 18.2 H Plt Count 335 MPV 9.2 Sodium 137 Potassium 3.9 Chloride 105 Carbon Dioxide 26.0 Anion Gap 6 BUN 12 Creatinine 1.04 Estim Creat Clear Calc 111.33 Est GFR (MDRD) Af Amer 98 Est GFR (MDRD) Non-Af 81 BUN/Creatinine Ratio 11.5 Glucose 96 Lactic Acid 0.8 Calcium 9.3 Radiography Diagnostic Testing: Clinical Impression(s) from Imaging Studies Brain CT 12/11/23 16:21 IMPRESSION: Large left-sided encephalomalacia with postsurgical changes. No significant changes since the previous study. Electronically Signed: Rajendra Chavira DO at 17:00 EDT , Discharge Plan Triage Chief Complaint: Edema ED Provider: Axel Way Dx/Rx/DC Orders Prescriptions: No Action cholecalciferol (vitamin D3) 1,250 mcg (50,000 unit) capsule 1,250 mcg PO QWEEK Qty: 4 1RF cephalexin [cephalexin] 500 mg capsule 500 mg PO Q6 Qty: 40 0RF oxycodone 5 mg tablet 5 mg PO Q6H PRN (Reason: pain) multivitamin [Daily Multi-Vitamin] Tablet 1 tab PO DAILY polyethylene glycol 3350 [Miralax] 17 gram/dose powder 17 g PO QHS enoxaparin 40 mg/0.4 mL syringe 40 mg subcut DAILY ondansetron HCl 4 mg tablet 4 mg PO Q6H PRN (Reason: nausea and vomiting) sennosides-docusate sodium [Lax Stool Softener With Senna] 8.6-50 mg tablet 1 tab-cap PO DAILY PRN (Reason: constipation) vancomycin HCl in water 100 mg/mL solution 1.25 g IV Q12H zinc sulfate 220 mg capsule 220 mg PO DAILY sulfamethoxazole-trimethoprim 800-160 mg tablet 1 tab PO BID sertraline 25 mg tablet 25 mg PO DAILY Primary Care Provider: Pete Blue Referrals: Pete Blue MD [Primary Care Provider] - Print Language: Maltese
--- NOTE | 2023-12-11 16:21 | CT_ITS ---
STUDY: CT BRAIN WITHOUT CONTRAST REASON FOR EXAM: Male, 48 years old. recen brain surg, swelling pain, r/o abscess RADIATION DOSAGE (If Supplied By Facility): CTDIvol = ( 44.99 ) mGy, DLP = ( 947.97 ) mGycm TECHNIQUE: Transaxial CT imaging of the brain was performed without administration of intravenous contrast material. Individualized dose optimization techniques were used for this CT. COMPARISON: September 17, 2093 FINDINGS: Normal soft tissue structures. Postsurgical changes along the left side of the calvarium. Dilated left sided ventricular system. Normal extra-axial spaces for the patient''s age. Large encephalomalacia in the left MCA distribution. Normal white matter tracts of the cerebral hemispheres. Normal basal ganglia and thalami. Normal brainstem. Normal cerebellum. There is no intracranial hemorrhage. There are no findings of an acute ischemic infarction. Probable left maxillary sinus retention cyst. CT/Brain/Head without Contrast IMPRESSION: Large left-sided encephalomalacia with postsurgical changes. No significant changes since the previous study. Electronically Signed: Rajendra Chavira DO at 17:00 EDT Reading Location ID and State: [facility] / [place] Tel [phone], Service support ,
[2023-12-11 16:40] LABS: Hematocrit 31.7 % (40-54); Hemoglobin 9.2 g/dL (13.0-16.5); Mean Corpuscular Hgb 22.1 pg (27.0-32.0); Mean Corpuscular Volume 76.2 fL (80-94); Mean Platelet Vol. 9.2 fl (6.2-12.0); Platelet Count 335 K/mm3 (150-450); RBC Distribution Width CV 18.2 % (11.6-14.6); RBC Distribution Width SD 50.2 fl (35.1-43.9); Red Blood Count 4.16 M/mm3 (4.6-6.2); White Blood Count 7.2 K/mm3 (4.4-11.0)
[2023-12-11 17:09] LABS: Anion Gap 6 (5-15); BUN 12 mg/dL (7-18); BUN/Creat Ratio 11.5 RATIO (10-20); Calcium,Total 9.3 mg/dL (8.5-10.1); Chloride 105 mmol/L (98-107); Creatinine, Serum 1.04 mg/dL (0.70-1.30); EST Glomerular Filtration Rate 81 mL/min (>60); Est Glom Filt Rate - Afr Amer 98 mL/min (>60); Estimated Creatinine Clearance 111.33 ml/min; Glucose 96 mg/dL (74-106); Potassium 3.9 mmol/L (3.5-5.1); Sodium Level 137 mmol/L (136-145)
[2023-12-11 17:13] LABS: Lactic Acid 0.8 mmol/L (0.4-1.9)
--- NOTE | 2023-12-11 17:24 | ED.RN ---
DR. TIM TAFOYA [facility] [phone]
[2023-12-11] MEDS: Acetaminophen 325 MG Tablet 650 MG PO (17:48)
[2023-12-12 01:00] VITALS: BP 159/93; PULSE 100; RESP 23; O2SAT 95
== END 2023-12-12 02:15 | disposition intermediate care facility (04) ==
PROVIDERS: Emergency Provider Emergency Medicine; PCP Family Medicine; Visit Provider Emergency Medicine
DX: G89.18 Other acute postprocedural pain (principal); G81.91 Hemiplegia, unspecified affecting right dominant side; R50.9 Fever, unspecified; Z87.891 Personal history of nicotine dependence; R47.01 Aphasia; E78.5 Hyperlipidemia, unspecified; I10 Essential (primary) hypertension; R60.9 Edema, unspecified; Z98.890 Other specified postprocedural states; Z79.899 Other long term (current) drug therapy; Z86.73 Personal history of transient ischemic attack (TIA), and cerebral infarction without residual deficits
CPT/HCPCS: 70450; 80048; 83605; 85027; 87631; 99284; A4216